=== PATIENT | male | born 1940 | race Caucasian/White ===

== ENCOUNTER → 2023-07-08 10:53 | Outpatient (REF) | payer MEDICARE, SELFPAY ==
[2023-07-08 12:03] LABS: ALT (SGPT) 28 U/L (0-50); AST (SGOT) 30 U/L (17-59); Albumin 4.1 g/dl (3.5-5.0); Alkaline Phosphatase 104 U/L (38-126); Blood Urea Nitrogen 33 mg/dl (9-20); Carbon Dioxide 27 mmol/L (22-30); Chloride 108 mmol/L (98-107); Glucose 100 mg/dl (70-99); HDL Cholesterol 47 mg/dl; LDL Cholesterol, Calculated 45 mg/dl; Potassium 4.3 mmol/L (3.5-5.1); Sodium 140 mmol/L (135-145); Total Bilirubin 1.3 mg/dl (0.2-1.3); Total Cholesterol 112 mg/dl (50-199); Total Protein 6.8 g/dl (6.3-8.2); Triglyceride 102 mg/dl (10-149); Very Low Density Lipoprotein 20 mg/dl (0-30); eGFR 49.87
== END ==
LOC: REG 10:53
PROVIDERS: ATTENDING PHYSICIAN Family Medicine
DX: N18.31 Chronic kidney disease, stage 3a (principal); R73.01 Impaired fasting glucose; E78.2 Mixed hyperlipidemia
CPT/HCPCS: 36415; 80053; 80061

== ENCOUNTER → 2023-08-12 13:49 | Outpatient (REF) | payer MEDICARE, SELFPAY | LOC: RAD 13:49 | PROVIDERS: ATTENDING PHYSICIAN Physician Assistant; FAMILY PHYSICIAN Family Medicine | DX: S29.9XXA Unspecified injury of thorax, initial encounter (principal); R07.81 Pleurodynia | CPT/HCPCS: 71101 ==

== ENCOUNTER 2023-10-23 10:49 | Emergency (ER) | payer MEDICARE, SELFPAY ==
[2023-10-23 10:55] VITALS: BP 141/72
--- NOTE | 2023-10-23 11:34 | ED.MUSCINJ ---
HPI-Injury
General
Chief Complaint: Musculo-Skeletal Complaint
Source: patient
Exam Limitations: none
Time Seen by Provider: 10/23/23 11:17
Nursing documentation reviewed up to this point in time: agreed with
Travel History
Have you had any contact with someone who has COVID-19?: No
Do you have any symptoms of coronavirus? Fever > 100 degrees, chills, cough, shortness of breath, sore throat, loss of taste or smell, muscle aches, or headache?: No
History of Present Illness-Injury
Initial Injury comments:
83-year-old male with history of A-fib on Eliquis, HTN, CAD, CABG 11/05, cardiac stents, from home states he has pain at the base of his right middle finger since yesterday. After pushing down hard on a mailbox post trying to get it to fit into a
cemented metal hole.
Past History
Past History
ED Past Medical History: CAD, HTN and Hypercholesterolemia
ED Past Surgical History: Cardiac (CABG 2004 at [place], [place])
Social History
Tobacco: Non-smoker
Personal:
Living: with family
Review of Systems
Review of Systems
Allergies reviewed?: Yes
All Other Systems: ROS reviewed and negative except as documented in HPI and ROS
Musculoskeletal: Reports other (pain over MCP joint right third finger)
Neurological: Denies weakness or numbness
Phy Exam
Physical Exam
Physical Exam:
PHYSICAL EXAMINATION:
General: no apparent distress, not acutely ill
Neuro: alert and oriented.
Psychiatric: well kept. interactive and cooperative
Musculoskeletal: Point tender to palpate over dorsal aspect of third MCP joint. Full range of motion of fingers and wrist. No significant swelling, no redness. Distal neurovascular intact. Moves with ease
Skin: Warm, pink.
Injury Course
Orders/Labs/Results
Orders:
Orders
10/23/23 10:57
Hand, Right 3 View [CR Hand - Right Min 3 Views] Urgent
Comment:
Reason For Exam: pain
MDM/Problems Addressed
Differential Diagnosis Includes:
Contusion, fracture
MDM/Problems Addressed:
83-year-old male with history of A-fib on Eliquis, HTN, CAD, CABG 11/05, cardiac stents, from home states he has pain at the base of his right middle finger since yesterday. After pushing down hard on a mailbox post trying to get it to fit into a
cemented metal hole.
X-ray right hand is negative
Point tender over dorsal MCP joint 3rd finger rest of hand is nontender
[place] wrist splint applied and pt states good support of affected joint. N/V intact
Referred to ortho if needed
*Critical Care Note
Total Time (30-74mins, 75-104mins- exclusive of procedures): Not Applicable
ED Attending Note
-
Portions of this chart may have been created with voice recognition software.� Occasional wrong word or��sound alike� substitutions may have occurred due to the inherent limitations of voice recognition software.
Discharge Plan
Departure
Patient Disposition: Home (Routine Discharge)
Date of Disposition: 10/23/23
Time of Disposition: 11:45
Patient with high blood pressure during this ER visit?: No
Condition: Good
Discharge Problem:
Pain in joint of right hand
Instructions: Contusion (DC), Using Cold for Pain
Prescriptions:
No Action
atorvastatin 20 MG tablet
20 mg PO QPM
aspirin 325 MG tablet
325 mg PO DAILY
amlodipine 10 MG tablet
10 mg PO DAILY
zolpidem 10 MG tablet
10 mg PO HS
Patient Comments:
06/10/20-patient lasted picked up on 03/24/20 #90
multivitamin with folic acid [Tab-A-Julee] 1 TABLET tablet
1 tab PO DAILY
isosorbide mononitrate 30 MG tablet extended release 24 hr
30 mg PO DAILY
candesartan 16 MG tablet
32 mg PO DAILY
nitroglycerin 0.4 MG tablet, sublingual
0.4 mg sublingual [id number] PRN (Reason: chest pain)
Referrals:
Gilson Lord MD [Active] - As needed
Wang Mercado MD [Family Provider] -
Activity Restrictions/Additional Instructions:
As we discussed, wear the splint for up to one week as needed for comfort/support
Tylenol as needed for pain
You most likely aggravated the joint pushing on the mailbox post.
We will treat for a deep bruise or 'contusion.'
Make appointment and see the orthopedic doctor if not much improved within the next week.
Interventions
Interventions:
*Risk Screen - Suicide Last Done: 10/23/23 10:55
*General Assessment Last Done: 10/23/23 10:55
*Neglect/Abuse Screening Last Done: 10/23/23 10:55
*ED COVID-19 Vaccine History Last Done: 10/23/23 10:55
*Nursing Disposition Last Done: 10/23/23 11:58
ED-Musculoskeletal Assessment Last Done: 10/23/23 11:34
Discharge Date and Time
Discharge Date/Time: 10/23/23 11:59
Print Language: FRENCH
== END 2023-10-23 11:59 | disposition home or self-care (01) ==
LOC: EMR 10:49
PROVIDERS: EMERGENCY PHYSICIAN Emergency Medicine; FAMILY PHYSICIAN Family Medicine
DX: M25.541 Pain in joints of right hand (principal); X50.1XXA Overexertion from prolonged static or awkward postures, initial encounter; I48.91 Unspecified atrial fibrillation; I10 Essential (primary) hypertension; I25.10 Atherosclerotic heart disease of native coronary artery without angina pectoris
CPT/HCPCS: 99283; 29125; 73130

== ENCOUNTER → 2023-11-13 11:34 | Outpatient (REF) | payer MEDICARE, SELFPAY ==
[2023-11-13 13:05] LABS: % Basophils 0.7 % (0-2); % Eosinophils 1.7 % (0-6); % Immature Granulocytes 0.4 % (0-0.5); % Lymphocytes 28.1 % (20.5-51.1); % Monocytes 11.3 % (1.7-9.3); % Neutrophils 57.8 % (42.2-75.2); Absolute Basophils 0.1 10^3/uL (0-0.2); Absolute Eosinophils 0.1 10^3/uL (0-0.7); Absolute Monocytes 0.8 10^3/uL (0.1-0.6); Absolute Neutrophils 4.2 10^3/uL (1.4-6.5); Hematocrit 39.2 % (39.0-52.0); Hemoglobin 13.8 g/dL (13.0-18.0); Mean Corp Hgb Conc. 35.2 g/dL (33.0-37.0); Mean Corpuscular Hgb 33.4 pg (27.0-31.0); Mean Corpuscular Volume 94.9 fL (80.0-94.0); Mean Platelet Volume 11.2 fL (7.4-10.4); Nucleated Red Blood Cells % 0 % (-); Platelet Count 170 10^3/uL (130-400); Red Blood Cell Count 4.13 10^6/uL (4.70-6.10); Red Cell Dist. Width 12.6 % (11.5-14.5); White Blood Cell Count 7.2 10^3/uL (4.8-10.8)
[2023-11-13 13:33] LABS: ALT (SGPT) 27 U/L (0-50); AST (SGOT) 33 U/L (17-59); Albumin 4.1 g/dl (3.5-5.0); Alkaline Phosphatase 119 U/L (38-126); Blood Urea Nitrogen 32 mg/dl (9-20); Calcium 9.4 mg/dl (8.4-10.2); Carbon Dioxide 24 mmol/L (22-30); Chloride 107 mmol/L (98-107); Glucose 118 mg/dl (70-99); Potassium 4.1 mmol/L (3.5-5.1); Sodium 141 mmol/L (135-145); Total Bilirubin 1.1 mg/dl (0.2-1.3); Total Protein 6.9 g/dl (6.3-8.2); eGFR 49.87
[2023-11-13 13:35] LABS: Urine Albumin 1+ (Neg - Trace); Urine Bilirubin Negative (Negative); Urine Character Clear (Clear); Urine Color Yellow; Urine Glucose Negative (Negative); Urine Ketone Negative (Negative); Urine Leukocyte Negative (Negative); Urine Nitrite Negative (Negative); Urine Occult Blood Negative (Negative); Urine Urobilinogen Negative (Neg - 1+)
[2023-11-13 13:55] LABS: NT-proBNP 1460 pg/ml
[2023-11-13 15:18] LABS: Urine Granular Cast 0-2 /LPF (0); Urine Red Blood Cell 0-2 /HPF (0-2); Urine Urothelial Cell 0-2 /LPF (FEW); Urine White Cell 0-2 /HPF (0-5)
== END ==
LOC: RAD 11:34
PROVIDERS: ATTENDING PHYSICIAN Physician Assistant; FAMILY PHYSICIAN Family Medicine
DX: R60.0 Localized edema (principal)
CPT/HCPCS: 36415; 71046; 80053; 81003; 81015; 83880; 85025

== ENCOUNTER → 2023-11-20 10:57 | Outpatient (REF) | payer MEDICARE, SELFPAY ==
[2023-11-20 12:46] LABS: ALT (SGPT) 29 U/L (0-50); AST (SGOT) 32 U/L (17-59); Albumin 4.4 g/dl (3.5-5.0); Alkaline Phosphatase 114 U/L (38-126); Blood Urea Nitrogen 27 mg/dl (9-20); Calcium 9.7 mg/dl (8.4-10.2); Carbon Dioxide 28 mmol/L (22-30); Chloride 105 mmol/L (98-107); Glucose 102 mg/dl (70-99); HDL Cholesterol 43 mg/dl; LDL Cholesterol, Calculated 37 mg/dl; Potassium 4.8 mmol/L (3.5-5.1); Sodium 143 mmol/L (135-145); Total Bilirubin 1.2 mg/dl (0.2-1.3); Total Cholesterol 95 mg/dl (50-199); Total Protein 7.3 g/dl (6.3-8.2); Triglyceride 77 mg/dl (10-149); Very Low Density Lipoprotein 15 mg/dl (0-30); eGFR 49.87
[2023-11-20 13:58] LABS: Glycohemoglobin (HgbA1c) 5.6 % (4.0-5.6)
== END ==
LOC: REG 10:57
PROVIDERS: ATTENDING PHYSICIAN Family Medicine
DX: R73.01 Impaired fasting glucose (principal); N18.31 Chronic kidney disease, stage 3a; E78.2 Mixed hyperlipidemia
CPT/HCPCS: 36415; 80053; 80061; 83036

== ENCOUNTER → 2023-12-23 07:40 | Outpatient (REF) | payer MEDICARE, SELFPAY ==
[2023-12-23 14:11] LABS: Blood Urea Nitrogen 35 mg/dl (9-20); Calcium 9.5 mg/dl (8.4-10.2); Carbon Dioxide 30 mmol/L (22-30); Chloride 103 mmol/L (98-107); Glucose 92 mg/dl (70-99); Potassium 4.6 mmol/L (3.5-5.1); Sodium 141 mmol/L (135-145); eGFR 39.51
== END ==
LOC: REG 07:40
PROVIDERS: ATTENDING PHYSICIAN Internal Medicine Cardiovascular Disease; FAMILY PHYSICIAN Internal Medicine Cardiovascular Disease
DX: I10 Essential (primary) hypertension (principal)
CPT/HCPCS: 36415; 80048

== ENCOUNTER 2024-02-07 05:54 | Day surgery (SDC) | payer MEDICARE, SELFPAY ==
[2024-01-24 11:01] VITALS: BMI 31.5
[2024-01-24 11:37] LABS: % Basophils 0.9 % (0-2); % Eosinophils 1.9 % (0-6); % Immature Granulocytes 0.8 % (0-0.5); % Lymphocytes 27.7 % (20.5-51.1); % Monocytes 12.2 % (1.7-9.3); % Neutrophils 56.5 % (42.2-75.2); Absolute Basophils 0.1 10^3/uL (0-0.2); Absolute Eosinophils 0.1 10^3/uL (0-0.7); Absolute Immature Granulocytes 0.1 10^3/uL (0-0.05); Absolute Lymphocytes 1.8 10^3/uL (1.2-3.4); Absolute Monocytes 0.8 10^3/uL (0.1-0.6); Absolute Neutrophils 3.7 10^3/uL (1.4-6.5); Hematocrit 41.8 % (39.0-52.0); Hemoglobin 14.6 g/dL (13.0-18.0); Mean Corp Hgb Conc. 34.9 g/dL (33.0-37.0); Mean Corpuscular Volume 97.2 fL (80.0-94.0); Mean Platelet Volume 10.9 fL (7.4-10.4); Nucleated Red Blood Cells % 0 % (-); Platelet Count 165 10^3/uL (130-400); Red Cell Dist. Width 12.8 % (11.5-14.5); White Blood Cell Count 6.5 10^3/uL (4.8-10.8)
[2024-01-24 11:48] LABS: ALT (SGPT) 26 U/L (0-50); AST (SGOT) 32 U/L (17-59); Albumin 4.5 g/dl (3.5-5.0); Alkaline Phosphatase 91 U/L (38-126); Blood Urea Nitrogen 30 mg/dl (9-20); Calcium 9.7 mg/dl (8.4-10.2); Carbon Dioxide 29 mmol/L (22-30); Chloride 105 mmol/L (98-107); Estimated Creatinine Clearance 36 ml/min; Glucose 101 mg/dl (70-99); Magnesium 2.3 mg/dl (1.6-2.3); Potassium 4.6 mmol/L (3.5-5.1); Sodium 144 mmol/L (135-145); Total Bilirubin 1.5 mg/dl (0.2-1.3); Total Protein 7.1 g/dl (6.3-8.2); eGFR 42.49
[2024-01-24 11:50] LABS: INR 1.42; PT 17.1 Sec (11.4-14.6)
[2024-02-07] VITALS (17 sets, daily range): BP systolic 131–164; BP diastolic 63–105; BMI 31.5
[2024-02-07 06:48] LABS: Glucose - Point of Care 101 mg/dl (70-99)
[2024-02-07 08:34] LABS: ACT-LR - POC 351 Seconds (116-155)
[2024-02-07 09:00] LABS: ACT-LR - POC 308 Seconds (116-155)
[2024-02-07 09:23] LABS: ACT-LR - POC 266 Seconds (116-155)
[2024-02-07 09:41] LABS: ACT-LR - POC 153 Seconds (116-155)
--- NOTE | 2024-02-07 10:00 | ITS.CL.ABL ---
[employer] - Ablation
Ablation
Procedure Report:
Primary Workflow Developer: Gagan Yee MD
Procedure Date: 02/07/2024
Procedure
Electrophysiology Study, with RA, CS pacing and recording
Radiofrequency Ablation of Counterclockwise Cavotricuspid Isthmus-dependent Right Atrial Flutter
Three-dimensional Electroanatomic Mapping and Navigation
Patient History
See H&P for complete details
Patient is a pleasant 83-year-old male with a past medical history significant for CAD status post PCI and CABG, hypertension, sleep apnea, hypercholesterolemia, NSVT, persistent (longstanding) typical rate controlled atrial flutter anticoagulated
with Eliquis. Patient did undergo procedure for symptomatic longstanding persistent atrial flutter.
Method
After informed consent was obtained, the patient was brought to the EP lab in a post-absorptive, non-sedated state. A peripheral IV was in place. Continuous electrocardiography, blood pressure and pulse oximetry monitoring were initiated and
cardioversion / defibrillator patch electrodes were positioned on the chest in an anterior-posterior orientation. Sedation was administered via the anesthesia services. A time-out was called. Local anesthesia was administered at the right and left
femoral vein access sites. Vascular access was achieved using modified Seldinger technique, and 3 sheaths were placed.
The patient entered the room in atrial flutter with a tachycardia cycle length of 260-270 ms. A multipolar catheter were advanced to the coronary sinus. A mapping / ablation catheter was used to record and pace. Intracardiac ultrasound (ICE) was
utilized for structural assessment and monitoring. Tachycardia was characterized by concentric activation pattern in the CS catheters. Entrainment maneuvers established cavotricuspid isthmus-dependence. PPI minus TCL less than 30 from proximal
CS and PPI minus TCL noted to be 0 or equal to the tachycardia cycle length from CTI.
Three-dimensional electroanatomic mapping was utilized. Catheter ablation in the right atrium was performed as described below. The patient�s atrial flutter terminated during ablation. Ablation continued until a line was complete from the
tricuspid valve annulus to the IVC-RA junction. Clockwise and counterclockwise trans-isthmus times were determined, and RA activation patterns confirmed bidirectional block. Following completion of ablation, patient was noted to be in junctional
rhythm with return to sinus rhythm which remained until completion of the case. Interval measurements in NSR were made. A waiting period was observed, after which the procedure was concluded.
At the end of the procedure, all catheters and sheaths were removed, hemostasis was assured with Vascade and manual pressure. Protamine was given. The patient was taken to the recovery area in stable condition.
Baseline Intervals:
Rhythm: Atrial flutter
QRS: 125 ms
QT: 489 ms
Post-Procedure Intervals:
NJ: 200 ms
QRS: 122 ms
QT: 441 ms
QTc: 419 ms
AVWB: 640 ms
AVNERP: 700/570 ms
No arrhythmia was inducible post ablation
Arrhythmia Summary:
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
� Present at study outset
� Stable Atrial CL = 270 ms
� Surface flutter wave morphology: Negative in the inferior leads and positive in V1
� Right to left activation in CS
� Cycle length contained with in the RA on electroanatomic mapping
� Pacing from the isthmus resulted in entrainment (with concealment) with PPI=TCL.
These finding established the diagnosis of isthmus-dependent, counterclockwise atrial flutter.
Mapping and Ablation
Utilizing electroanatomic three-dimensional navigation, a 3.5 mm tip Tacticath SE irrigated ablation catheter was advanced to the right atrium with the assistance of an 11.5 Fr Agilis steerable long sheath. An electroanatomic three-dimensional map
of the right atrium was constructed, with careful attention to anatomic landmarks, including the coronary sinus, IVC-RA and SVC-RA junction, tricuspid valve annulus, and region of the His bundle electrogram.
An ablation line was created from the tricuspid annulus to the IVC in the 6:00 position (ALISSA clock). Power was titrated between 30 and 40 Fields with careful monitoring of impedance and temperature.. The patient�s atrial flutter terminated during
ablation, with resumption of NSR. The line was completed during CS pacing, and bidirectional block was achieved. The ablation line was mapped to ensure widely spaced double potentials, and after a 20 minute waiting period, bidirectional block
persisted.
Ablation Summary
Total ablation time: 6 minutes 41 seconds
Estimated Blood Loss
<5 mL
Fluoroscopy Time 3.2
Radiation Dose 14.3 mGy
DAP 1.5
Complications
None
Conclusions
1. Typical, counterclockwise atrial flutter. Isthmus-dependence was established with entrainment.
2. Successful ablation of the cavotricuspid isthmus with bidirectional block.
Recommendations
- Anticipate discharge home today
- Bedrest with straight leg precautions for four hours
- Resume anticoagulation tonight if patient/groins stable
- Continue remaining home medications as indicated
- Follow-up in clinic as scheduled
Omar Del Real,
Clinical Cardiac Electrophysiology
cc: Gagan Yee MD; Wang Mercado MD
== END 2024-02-07 13:10 | disposition home or self-care (01) ==
LOC: CATH 05:54
PROVIDERS: ATTENDING PHYSICIAN Internal Medicine Cardiovascular Disease; FAMILY PHYSICIAN Family Medicine; OTHER PHYSICIAN Internal Medicine Cardiovascular Disease
DX: I48.3 Typical atrial flutter (principal); I25.10 Atherosclerotic heart disease of native coronary artery without angina pectoris; Z95.1 Presence of aortocoronary bypass graft; Z95.5 Presence of coronary angioplasty implant and graft; I13.0 Hypertensive heart and chronic kidney disease with heart failure and stage 1 through stage 4 chronic kidney disease, or unspecified chronic kidney disease; E11.22 Type 2 diabetes mellitus with diabetic chronic kidney disease; N18.30 Chronic kidney disease, stage 3 unspecified; I50.32 Chronic diastolic (congestive) heart failure; I49.3 Ventricular premature depolarization; I47.20 Ventricular tachycardia, unspecified; K76.0 Fatty (change of) liver, not elsewhere classified; G47.00 Insomnia, unspecified; R73.03 Prediabetes; Z68.31 Body mass index [BMI] 31.0-31.9, adult; E66.9 Obesity, unspecified; Z79.899 Other long term (current) drug therapy; Z79.84 Long term (current) use of oral hypoglycemic drugs; Z79.01 Long term (current) use of anticoagulants; E78.00 Pure hypercholesterolemia, unspecified; G47.33 Obstructive sleep apnea (adult) (pediatric)
CPT/HCPCS: C1732; C1894; C1730; C1769; C1766; C2630; C1892; 36415; 75572; 80053; 82962; 83735; 85025; 85347; 85610; 86850; 86900; 86901; 93005; 93653; C1760; Q9967

== ENCOUNTER → 2024-03-12 12:37 | Outpatient (REF) | payer MEDICARE, SELFPAY ==
[2024-03-12 13:31] LABS: ALT (SGPT) 31 U/L (0-50); AST (SGOT) 34 U/L (17-59); Albumin 4.2 g/dl (3.5-5.0); Alkaline Phosphatase 101 U/L (38-126); Blood Urea Nitrogen 33 mg/dl (9-20); Calcium 9.2 mg/dl (8.4-10.2); Carbon Dioxide 27 mmol/L (22-30); Chloride 104 mmol/L (98-107); Glucose 106 mg/dl (70-99); Potassium 4.6 mmol/L (3.5-5.1); Sodium 144 mmol/L (135-145); Total Bilirubin 1.1 mg/dl (0.2-1.3); eGFR 39.51
== END ==
LOC: REG 12:37
PROVIDERS: ATTENDING PHYSICIAN Family Medicine
DX: N18.31 Chronic kidney disease, stage 3a (principal); R73.01 Impaired fasting glucose
CPT/HCPCS: 36415; 80053

== ENCOUNTER → 2024-07-06 11:46 | Outpatient (REF) | payer MEDICARE, SELFPAY ==
[2024-07-06 13:10] LABS: ALT (SGPT) 25 U/L (0-50); AST (SGOT) 28 U/L (17-59); Albumin 4.8 g/dl (3.5-5.0); Alkaline Phosphatase 90 U/L (38-126); Blood Urea Nitrogen 31 mg/dl (9-20); Calcium 9.8 mg/dl (8.4-10.2); Carbon Dioxide 31 mmol/L (22-30); Chloride 101 mmol/L (98-107); Glucose 96 mg/dl (70-99); HDL Cholesterol 51 mg/dl; LDL Cholesterol, Calculated 58 mg/dl; Potassium 4.8 mmol/L (3.5-5.1); Sodium 140 mmol/L (135-145); Total Bilirubin 1.5 mg/dl (0.2-1.3); Total Cholesterol 133 mg/dl (50-199); Total Protein 7.6 g/dl (6.3-8.2); Triglyceride 120 mg/dl (10-149); Very Low Density Lipoprotein 24 mg/dl (0-30); eGFR 34.35
[2024-07-06 13:15] LABS: Glycohemoglobin (HgbA1c) 5.5 % (4.0-5.6)
== END ==
LOC: REG 11:46
PROVIDERS: ATTENDING PHYSICIAN Family Medicine
DX: E78.2 Mixed hyperlipidemia (principal); R73.01 Impaired fasting glucose; N18.31 Chronic kidney disease, stage 3a
CPT/HCPCS: 36415; 80053; 80061; 83036

== ENCOUNTER → 2024-08-06 13:36 | Outpatient (REF) | payer MEDICARE, SELFPAY | LOC: DHSLP 13:36 | PROVIDERS: ATTENDING PHYSICIAN Internal Medicine Critical Care Medicine | DX: G47.33 Obstructive sleep apnea (adult) (pediatric) (principal) | CPT/HCPCS: 95800 ==

== ENCOUNTER → 2024-08-10 11:48 | Outpatient (REF) | payer MEDICARE, SELFPAY ==
[2024-08-10 12:26] LABS: % Basophils 0.7 % (0-2); % Eosinophils 1.4 % (0-6); % Immature Granulocytes 0.3 % (0-0.5); % Lymphocytes 24.6 % (20.5-51.1); % Monocytes 13.1 % (1.7-9.3); % Neutrophils 59.9 % (42.2-75.2); Absolute Basophils 0.1 10^3/uL (0-0.2); Absolute Eosinophils 0.1 10^3/uL (0-0.7); Absolute Lymphocytes 1.8 10^3/uL (1.2-3.4); Absolute Monocytes 0.9 10^3/uL (0.1-0.6); Absolute Neutrophils 4.3 10^3/uL (1.4-6.5); Hematocrit 46.3 % (39.0-52.0); Hemoglobin 15.6 g/dL (13.0-18.0); Mean Corp Hgb Conc. 33.7 g/dL (33.0-37.0); Mean Corpuscular Hgb 32.6 pg (27.0-31.0); Mean Corpuscular Volume 96.7 fL (80.0-94.0); Mean Platelet Volume 10.6 fL (7.4-10.4); Nucleated Red Blood Cells % 0 % (-); Platelet Count 162 10^3/uL (130-400); Red Blood Cell Count 4.79 10^6/uL (4.70-6.10); Red Cell Dist. Width 12.6 % (11.5-14.5); Reticulocyte Count 1.4 % (0.4-2.8); White Blood Cell Count 7.2 10^3/uL (4.8-10.8)
[2024-08-10 12:39] LABS: Blood Urea Nitrogen 36 mg/dl (9-20); Calcium 9.9 mg/dl (8.4-10.2); Carbon Dioxide 30 mmol/L (22-30); Chloride 106 mmol/L (98-107); Glucose 109 mg/dl (70-99); Potassium 4.5 mmol/L (3.5-5.1); Sodium 142 mmol/L (135-145); eGFR 45.62
[2024-08-10 13:07] LABS: Protein/creatinine Ratio 0.7; Urine Protein 48 mg/dl
== END ==
LOC: REG 11:48
PROVIDERS: ATTENDING PHYSICIAN Internal Medicine Nephrology; FAMILY PHYSICIAN Family Medicine
DX: N18.31 Chronic kidney disease, stage 3a (principal); I10 Essential (primary) hypertension
CPT/HCPCS: 36415; 80048; 82570; 84156; 85025; 85045

== ENCOUNTER → 2024-09-07 14:04 | Outpatient (REF) | payer MEDICARE, SELFPAY | LOC: DHSLP 14:04 | PROVIDERS: ATTENDING PHYSICIAN Internal Medicine Critical Care Medicine; FAMILY PHYSICIAN Family Medicine | DX: G47.33 Obstructive sleep apnea (adult) (pediatric) (principal) | CPT/HCPCS: 95810 ==

== ENCOUNTER → 2024-09-23 13:08 | Outpatient (REF) | payer MEDICARE, SELFPAY | LOC: RAD 13:08 | PROVIDERS: ATTENDING PHYSICIAN Internal Medicine Cardiovascular Disease; FAMILY PHYSICIAN Family Medicine; OTHER PHYSICIAN Internal Medicine Nephrology | DX: N18.31 Chronic kidney disease, stage 3a (principal); I47.29 Other ventricular tachycardia | CPT/HCPCS: 76770 ==

== ENCOUNTER → 2024-09-24 09:11 | Outpatient (REF) | payer MEDICARE, SELFPAY | LOC: RCS 09:11 | PROVIDERS: ATTENDING PHYSICIAN Internal Medicine Cardiovascular Disease; FAMILY PHYSICIAN Family Medicine | DX: I47.29 Other ventricular tachycardia (principal) | CPT/HCPCS: 93306 ==

== ENCOUNTER 2024-10-27 07:27 | Inpatient (IN) | payer MEDICARE, SELFPAY ==
[2024-10-24] VITALS (13 sets, daily range): BP systolic 145–190; BP diastolic 65–98; PULSE 54–57; BMI 29.0; BMI 28.4
[2024-10-24 01:32] LABS: % Basophils 0.8 % (0-2); % Immature Granulocytes 0.6 % (0-0.5); % Monocytes 10.9 % (1.7-9.3); % Neutrophils 61.7 % (42.2-75.2); Absolute Basophils 0.1 10^3/uL (0-0.2); Absolute Eosinophils 0.2 10^3/uL (0-0.7); Absolute Immature Granulocytes 0.1 10^3/uL (0-0.05); Absolute Lymphocytes 1.9 10^3/uL (1.2-3.4); Absolute Monocytes 0.9 10^3/uL (0.1-0.6); Absolute Neutrophils 4.9 10^3/uL (1.4-6.5); Hematocrit 44.4 % (39.0-52.0); Hemoglobin 15.4 g/dL (13.0-18.0); Mean Corp Hgb Conc. 34.7 g/dL (33.0-37.0); Mean Corpuscular Volume 95.3 fL (80.0-94.0); Nucleated Red Blood Cells % 0 % (-); Platelet Count 149 10^3/uL (130-400); Red Blood Cell Count 4.66 10^6/uL (4.70-6.10); Red Cell Dist. Width 12.8 % (11.5-14.5); White Blood Cell Count 7.9 10^3/uL (4.8-10.8)
--- NOTE | 2024-10-24 01:32 | ED.GENMED ---
History of Present Illness
General
Chief Complaint: Dizziness
Source: patient
Exam Limitations: none
Time Seen by Provider: 10/24/24 00:47
History of Present Illness
History of Present Illness:
84-year-old male presents with the onset of dizziness today. He states he was walking up the stairs and developed the dizziness. Dizziness was hard to describe. Initially felt like lightheaded sensation however when he lay down in the ambulance
he felt a spinning. There was no associated nausea diaphoresis chest pain headache double vision blurry vision or neck pain. He is anticoagulated with Eliquis. He has history of couple bypass with stent placement as well as cardiac ablation.
Currently he states he has no symptoms at the time of my exam.
Past History
Past History
ED Past Medical History: CAD, HTN and Hypercholesterolemia
ED Past Surgical History: Cardiac (CABG 2004 at [place], [place])
Social History
Tobacco: Non-smoker
Personal:
Living: with family
Phy Exam
Physical Exam
Physical Exam:
General: Well-appearing male no acute respiratory distress
HEENT: Normocephalic atraumatic pupils equal round reactive to light no nystagmus
Heart: Regular rate and rhythm
Lungs: Clear no wheeze
Extremities: No cyanosis or edema
Skin is warm no rash
Neurologic exam: Alert and oriented no facial asymmetry finger-nose intact [id number] intact. David-Hallpike negative
Course
Orders/Labs/Results
Orders:
Orders
10/24/24 01:00
Electrocardiogram (*1) Urgent
Reason for Study: Vertigo / Dizzy
EKG- Treatment ONCE
10/24/24 01:22
Complete Blood Count/With Diff Urgent
Comprehensive Metabolic Panel Urgent
Troponin I Urgent
10/24/24 02:13
Aspirin 325 mg PO NOW STA
Abnormal Lab Results
10/24/24
01:22
RBC 4.66 L 10^6/uL
(4.70-6.10)
MCV 95.3 H fL
(80.0-94.0)
MCH 33.0 H pg
(27.0-31.0)
MPV 11.0 H fL
(7.4-10.4)
Abs Immat Gran (auto) 0.1 H 10^3/uL
(0-0.05)
Absolute Monos (auto) 0.9 H 10^3/uL
(0.1-0.6)
Immature Gran % 0.6 H %
(0-0.5)
Monocytes % 10.9 H %
(1.7-9.3)
Chloride 111 H mmol/L
(98-107)
BUN 34 H mg/dl
(9-20)
Creatinine 1.4 H mg/dL
(0.7-1.3)
Glucose 133 H mg/dl
(70-99)
Alkaline Phosphatase 138 H U/L
(38-126)
Troponin I 0.042 H* ng/ml
10/24/24 01:22
10/24/24 01:22
Vital Signs
Initial and Last Documented VS:
Initial Vital Signs
Temp Pulse Resp BP Pulse Ox
98.0 F 53 18 186/73 97
10/24/24 00:14 10/24/24 00:14 10/24/24 00:14 10/24/24 00:14 10/24/24 00:14
Last Documented Vital Signs
Temp Pulse Resp BP Pulse Ox
98.0 F 55 15 166/70 97
10/24/24 00:14 10/24/24 02:00 10/24/24 02:00 10/24/24 02:00 10/24/24 00:14
MDM/Problems Addressed
Differential Diagnosis Includes:
Dizziness, now resolved. Question orthostasis versus vertigo versus arrhythmia or electrolyte abnormality
EKG shows sinus bradycardia with first-degree block no ischemic changes.
Neurologic exam intact. Symptoms resolved. Will check labs
*Critical Care Note
Total Time (30-74mins, 75-104mins- exclusive of procedures): Not Applicable
Update Note
Update Note:
Workup demonstrates slightly elevated troponin at 0.045. Trend of his troponins in the past have been in the normal range but lower. Patient reexamined still no chest pain feels okay. Given significant cardiac history and elevated troponin will
decide to keep patient in hospital. EKG shows sinus bradycardia with frequent PVCs. Aspirin ordered.
ED Attending Note
-
Portions of this chart may have been created with voice recognition software.� Occasional wrong word or��sound alike� substitutions may have occurred due to the inherent limitations of voice recognition software.
Discharge Plan
Departure
Patient Disposition: Admit
Date of Disposition: 10/24/24
Time of Disposition: 02:21
Presentation/result/management discussed w/ accepting MD/DO: Hospitalist
Discharge Problem:
Elevated troponin
Prescriptions:
No Action
atorvastatin 20 MG tablet
20 mg PO QPM
amlodipine 10 MG tablet
10 mg PO DAILY
zolpidem 10 MG tablet
10 mg PO HS
isosorbide mononitrate 30 MG tablet extended release 24 hr
30 mg PO HS
furosemide 40 mg Tablet
20 mg PO DAILY
candesartan 32 mg Tablet
16 mg PO DAILY
Eliquis 5 mg Tablet
5 mg PO BID
Jardiance 10 mg Tablet
10 mg PO DAILY
acetaminophen [Tylenol Extra Strength] 500 mg Tablet
1,000 mg PO DAILY
Referrals:
Wang Mercado MD [Family Provider] -
Interventions
Interventions:
*Risk Screen - Suicide Last Done: 10/24/24 00:14
*General Assessment Last Done: 10/24/24 01:33
*Neglect/Abuse Screening Last Done: 10/24/24 01:33
*ED- Fall Risk Assessment Last Done: 10/24/24 01:33
ED- Neurological Assessment Last Done: 10/24/24 01:43
ED- Cardiac Assessment Last Done: 10/24/24 01:43
Discharge Date and Time
Print Language: MALTESE
--- NOTE | 2024-10-24 01:44 | EDRN ---
Pt says he was dizzy earlier tonight, had to use the wall for support when he went up the stairs. This prompted 911 call to bring pt to ED. Pt says the dizziness is gone now. Pt had it while he was in the ambulance. Pt denies cp, sob, abd pain,
n/v/d/c, urinary symptoms, fever/chills/cough, headache.
[2024-10-24 01:50] LABS: ALT (SGPT) 31 U/L (0-50); AST (SGOT) 29 U/L (17-59); Albumin 4.6 g/dl (3.5-5.0); Alkaline Phosphatase 138 U/L (38-126); Blood Urea Nitrogen 34 mg/dl (9-20); Calcium 9.5 mg/dl (8.4-10.2); Carbon Dioxide 23 mmol/L (22-30); Chloride 111 mmol/L (98-107); Estimated Creatinine Clearance 37 ml/min; Glucose 133 mg/dl (70-99); Potassium 3.9 mmol/L (3.5-5.1); Sodium 144 mmol/L (135-145); Total Bilirubin 1.1 mg/dl (0.2-1.3); Total Protein 7.5 g/dl (6.3-8.2); eGFR 49.56
[2024-10-24 01:57] LABS: Troponin I 0.042 ng/ml
[2024-10-24] MEDS: ASPIRIN 325 MG PO (02:36)
--- NOTE | 2024-10-24 03:47 | HPS.HSE ---
Family Physician
-
Family Physician: Wang Mercado
Chief Complaint
-
Dizziness
History of Present Illness
This is a 84-year-old male with past medical history significant for CAD status post CABG, status post stenting, atrial fibrillation on anticoagulation, status post ablation, hypertension presenting to the emergency department with episode of
dizziness. Patient reported being in usual state of health up until episode just prior to coming to the emergency department. He said that he got up and started walking towards the stairs and he suddenly felt very dizzy. He did not have a
spinning sensation at the time but reports some lightheadedness. He did not feel like passing out. He denied having any chest pain at the time. He denied feeling short of breath and he denied any palpitations. He walked up the flight of stairs
and did not feel well so he decided to call EMS. Reported that while EMS was en route to the hospital he had spinning sensation in the transport vehicle. Since then he has not had any vertigo-like symptoms. He was able to get up to urinate
without feeling dizzy or lightheaded. He has not had any chest pain.
Patient denies any recent exertional chest pain, exertional dyspnea. Reports that he did have mild nasal and sinus congestion in the morning prior to onset of his symptoms but he has not had them since. He denies any cough fevers or chills.
Denies any recent melena or hematochezia. He denies any diarrhea. Denies any recent changes in his medications.
He reported that he has a red spot in his left antecubital area surrounding a central dot. Is noticed this for about 2 days. He denies any pruritus.
Patient denies any prior history of syncope. He does state that he has chronic bradycardia. He is not on any blockade. He states his heart rate can go as low as 30s without feeling symptomatic.
In the emergency department he was afebrile, blood pressure was high as 180 systolic. Pulse as low as 38 on the telemetry. He is satting 98% on room air.
ECG shows sinus bradycardia rate of 57 with 4 degree AV block and occasional PVCs. Troponin was 0.042. CBC was unremarkable. Electrolytes were normal. BUN/creatinine were stable compared to prior 30.1.4.
Medical History
Past Medical History
Past Medical History: Reports Other
Additional Past Medical History:
CAD status post CABG, status post stent to RIDER to diagonal
Status post cardiac cath 06/11/2023
CKD
HAYLEY
Hypertension,
Hyperlipidemia
Past Surgical History: Reports Cardiac (CABG x 5)
Social History
Tobacco: Non-smoker
Alcohol: None
Family History
Family History: Not pertinent
Allergies / Home Medications
Allergies reflects when Allergies were last updated in [facility] [employer].
Home Medications with original date entered in [facility]
Allergy/Medication List:
Allergies
Allergy/AdvReac Type Severity Reaction Status Date / Time
No Known Allergies Allergy Verified 10/24/24 00:20
Home Medications
amlodipine 10 mg tablet 10 mg PO DAILY Heart disease/condition 05/07/10
atorvastatin 20 mg tablet 20 mg PO QPM High cholesterol 05/07/10
zolpidem 10 mg tablet 10 mg PO HS Sleep 05/07/10
isosorbide mononitrate 30 mg tablet,extended release 24 hr 30 mg PO HS Heart disease/condition 06/10/20
apixaban 5 mg tablet (Eliquis) 5 mg PO BID 01/21/24
candesartan 32 mg tablet 16 mg PO DAILY 01/21/24
empagliflozin 10 mg tablet (Jardiance) 10 mg PO DAILY 01/21/24
furosemide 40 mg tablet 20 mg PO DAILY 01/21/24
acetaminophen 500 mg tablet (Tylenol Extra Strength) 1,000 mg PO DAILY 10/24/24
Review of Systems
-
History Source: Patient
Constitutional: Reports No Symptoms
EENT: Reports No Symptoms
Respiratory: Reports No Symptoms
Cardiac: Reports No Symptoms
Abdomen/GI: Reports No Symptoms
: Reports No Symptoms
Musculoskeletal: Reports No Symptoms
Skin: Reports No Symptoms
Neurological: Reports Dizzy
Endocrine: Reports No Symptoms
Hematologic/Lymphatic: Reports No Symptoms
Psych: Reports No Symptoms
Physical Exam
Vital Signs
Vital Signs
Temp Pulse Resp BP Pulse Ox
98.0 F 55 15 166/70 97
10/24/24 00:14 10/24/24 02:00 10/24/24 02:00 10/24/24 02:00 10/24/24 00:14
Physical Exam
General: Well Developed, Well Nourished and No Apparent Distress
HEENT: NormoCephalic, Moist mucous membranes and Atraumatic
Respiratory: Clear
Cardiac: S1/S2 and Regular Rhythm
GI: Soft, Non Tender, Non Distended and Normal Bowel Sounds
Rectal: Deferred by Provider
Genito-urinary: Deferred by me
Musculoskeletal: No Clubbing, No Cyanosis and No Edema
Skin: Rash (Central red rash in the antecubital fossa with surrounding erythematous patch)
Neuro: Nonfocal/grossly intact
Psych: Calm
Laboratory Results
-
10/24/24 01:22
10/24/24 01:22
Laboratory Results
Total Bilirubin 1.1 mg/dl (0.2-1.3) 10/24/24 01:22
AST 29 U/L (17-59) 10/24/24 01:22
ALT 31 U/L (0-50) 10/24/24 01:22
Alkaline Phosphatase 138 U/L (38-126) H 10/24/24 01:22
Troponin I 0.042 ng/ml H* 10/24/24 01:22
Data Reviewed
-
Medical Tests (Nuc Med, Echo, EKG etc): Image Personally Visualized and interpreted
Lab Data: Labs Reviewed by me
Old Records: Reviewed
Impression/Plan
-
IMPRESSION:
84-year-old with history of CAD status post CABG, atrial fibrillation/slow flutter status post ablation, hypertension presents to the emergency department with episode of dizziness. He he reported feeling lightheaded and then later on having
vertigo episode which is now resolved. Found to be bradycardic in the ED it was low 37 which patient says is not unusual. ECG shows known for degree AV block however the MO prolongation is now more profound to as high as 360. Occasional PVCs
noted. Troponin was 0.045. He is not having any chest pain at this time. He is otherwise hypertensive but euvolemic appearing and in no acute distress.
PLAN:
1. Dizziness -ischemic versus arrhythmic etiology suspected.
- admit to telemetry observation
- suspect possible worsening 1st deg AVB, no blockers present
- rule out ischemia with repeat troponins
- check tsh and lyme titers
- check orthostatics for compensatorial mechanisms
- cardiology consultation
AFIB
- for afib, s/p ablation and sinus michaela now, continue eliquis unless trop rising. No chest pain. Given aspirin in ED
CAD/HTN
- trend troponin
- asa 325 given
- ntg prn chest pain
- continue his home candesartan, imdur and amlodipine
- furosemide 20 daily
- jardiance 10 daily
HAYLEY
- on nasal cpap at home. Prefers to be off CPAP here.
DVT PPX - on apixaban
Code status - Full Code
--- NOTE | 2024-10-24 04:49 | EDRN ---
"Pt says his HR goes into the 30's sometimes and that this has been happening since covid started in 2019. Pt checked his pulse when he felt dizzy and said it was in the 50's. Dr Bates ordered a sl ntg. Pt has NO chest pain. Confirmed with Dr Jana (~) that ntg sl is being given because pt concerned about his bp."
[2024-10-24] MEDS: NITROSTAT (SUBLINGUAL) 0.4 MG SL (04:51)
[2024-10-24 05:02] LABS: Troponin I 0.038 ng/ml
--- NOTE | 2024-10-24 06:03 | PTCARENOTE ---
Patient arrived from ED via stretcher. Patient AAOx3, able to make needs known. IV flushed and patent. Patient stnd by assist from stretcher to bed.
--- NOTE | 2024-10-24 07:59 | W.PN.HOSP.TC ---
Today's Communication/Plan
-
see bold
Assessment / Plan
Assessment / Plan
HPI: 84-year-old male with past medical history significant for CAD status post CABG, status post stenting, atrial fibrillation on anticoagulation, status post ablation, hypertension presenting to the emergency department with episode of dizziness.
Patient reported being in usual state of health up until episode just prior to coming to the emergency department. He said that he got up and started walking towards the stairs and he suddenly felt very dizzy. He did not have a spinning sensation
at the time but reports some lightheadedness. He did not feel like passing out. He denied having any chest pain at the time. He denied feeling short of breath and he denied any palpitations. He walked up the flight of stairs and did not feel
well so he decided to call EMS. Reported that while EMS was en route to the hospital he had spinning sensation in the transport vehicle. Since then he has not had any vertigo-like symptoms. He was able to get up to urinate without feeling dizzy
or lightheaded.
Sinus bradycardia
First-degree AV block
Dizziness
- Sees Dr. JOE Yee in the office
- Appreciate cardiology input, no clear indication for pacemaker at this point
- Check orthostatic vital signs, avoid AV tracy blocking agents, monitor on telemetry
Paroxysmal atrial flutter
- Status post flutter ablation February 2024
- Patient is bradycardic, continue Eliquis
Coronary artery disease
- Patient with minimally elevated troponin, EKG nonischemic
- Continue Imdur, Eliquis, statin
Obstructive sleep apnea
- On nasal CPAP at home, prefers to be off CPAP here
DVT prophylaxis�Eliquis
Full code
Physical Exam
General: No acute distress
HEENT: Normocephalic, Atraumatic, EOMI, MMM
Respiratory: Clear to Auscultation bilaterally
Cardiac: Normal S1/S2, bradycardic rate and Rhythm
GI: Soft, Nontender, Nondistended, Normal Bowel Sounds
Extremities: No Clubbing, Cyanosis
Bilateral lower extremity edema noted
Neuro: Nonfocal/Grossly Intact
Anticipated Discharge: 24 - 48 hours
Subjective/Interval History
-
Date of Service: October 24, 2024
Patient witnessed ambulating from the bathroom. He denies dizziness. No chest pain, no shortness of breath. Last episode of dizziness was in the emergency room.
Objective Data
-
Labs:
Laboratory Results
10/24/24 10/24/24
01:22 06:39
WBC 7.9 Pending
Hgb 15.4 Pending
Hct 44.4 Pending
Plt Count 149 Pending
Sodium 144 Pending
Potassium 3.9 Pending
Chloride 111 H Pending
Carbon Dioxide 23 Pending
BUN 34 H Pending
Creatinine 1.4 H Pending
Glucose 133 H Pending
Calcium 9.5 Pending
Total Bilirubin 1.1
AST 29
ALT 31
Alkaline Phosphatase 138 H
Vital Signs:
Vital Signs
Temp Pulse Resp BP Pulse Ox
98.3 F 48 18 168/73 98
10/24/24 06:04 10/24/24 06:04 10/24/24 06:04 10/24/24 06:04 10/24/24 06:04
I&O
10/23/24 10/24/24 10/25/24
06:59 06:59 06:59
Output Total 275 / 275
Balance -275 / -275
[2024-10-24 08:32] LABS: Hematocrit 44.9 % (39.0-52.0); Hemoglobin 15.8 g/dL (13.0-18.0); Mean Corp Hgb Conc. 35.2 g/dL (33.0-37.0); Mean Corpuscular Hgb 33.2 pg (27.0-31.0); Mean Corpuscular Volume 94.3 fL (80.0-94.0); Mean Platelet Volume 11.7 fL (7.4-10.4); Platelet Count 155 10^3/uL (130-400); Red Blood Cell Count 4.76 10^6/uL (4.70-6.10); Red Cell Dist. Width 12.7 % (11.5-14.5); White Blood Cell Count 7.9 10^3/uL (4.8-10.8)
[2024-10-24 08:42] LABS: Blood Urea Nitrogen 29 mg/dl (9-20); Calcium 9.4 mg/dl (8.4-10.2); Carbon Dioxide 24 mmol/L (22-30); Chloride 111 mmol/L (98-107); Estimated Creatinine Clearance 40 ml/min; Glucose 89 mg/dl (70-99); HDL Cholesterol 45 mg/dl; LDL Cholesterol, Calculated 48 mg/dl; Potassium 3.9 mmol/L (3.5-5.1); Sodium 144 mmol/L (135-145); Total Cholesterol 107 mg/dl (50-199); Triglyceride 71 mg/dl (10-149); Very Low Density Lipoprotein 14 mg/dl (0-30); eGFR 54.17
[2024-10-24] MEDS: ATACAND 16 MG PO (09:14)
[2024-10-24] MEDS: ELIQUIS 5 MG PO ×2 (09:15→19:14)
[2024-10-24] MEDS: LASIX PO ×2 (09:15→09:17)
[2024-10-24] MEDS: FARXIGA 10 MG PO (09:15)
[2024-10-24] MEDS: NORVASC 10 MG PO (09:15)
[2024-10-24] MEDS: TYLENOL 1000 MG PO (09:15)
--- NOTE | 2024-10-24 10:21 | CON.CAR ---
Addendum entered and electronically signed by Neeraj Aguilar DO 10/24/24 13:11:
I saw and examined the patient.
The Harness Mender's note was reviewed and I agree with the note.
Comment:
Plan:
Patient has a history of CABG and PCI, PAF status post ablation February 2024, right bundle branch block, LAFB, NSVT bradycardia sleep apnea chronic kidney disease hypertension and hyperlipidemia. He presents with an episode of 2 hours of
dizziness lightheadedness that occurred while he was walking. He denies syncope. He felt poorly and EMS was called. He did record feeling dizzy in the ambulance. EKG showed sinus bradycardia with first-degree AV block occasional PVCs. He had
minimal troponin elevation at 0.042. He was admitted for observation. He was hypertensive on arrival.
He was seen by Dr. Yee July 2024. He had a recent 5-day [employer] monitor completed 09/19/2024 which showed bradycardia with right bundle branch block and first-degree AVB. Heart rate range 28 to 118 bpm with average 58 bpm. No second-degree AV
block is seen. No atrial fibrillation or flutter. Episodes of junctional rhythm and junctional escape with numerous pauses up to 4.2 seconds seen predominantly during sleep. 1 episode of slow junctional tachycardia. Frequent PVCs with 6 episodes
of NSVT up to 5 beats in length. Rare brief AIVR. Rare PACs.
He has noted to have heart rates into the 20s with sinus bradycardia and junctional escape beats this morning while awake. He does complain of some dizziness with this. We discussed consideration for permanent pacemaker given symptomatic
bradycardia and the need for AV tracy blocking agents including beta-jessica given his extensive CAD history. He will be monitored with consideration for permanent pacemaker TuOctober 27, prior to discharge.
Continue medical therapy of non-PR troponin. Recent echo reviewed showed preserved LV function.
LDL is in the goal range. Continue Lipitor.
Could consider outpt ischemic eval for nonMI trop and NSVT. Cont medical therapy
Discussed with nursing.
Original Note:
Consultation
Consultation Request
Date/Time Consultation Requested: 10/24/2024
Date/Time Consultation Performed: 10/24/2024
Requesting Provider: Dr. Bates
Performing Provider: Karissa Harkins PA-C for Dr. Aguilar
Reason for Consultation: bradycardia, dizziness, Abnormal troponin
Medical History
-
History of Present Illness:
Patient is an 84-year-old male with past medical history significant for coronary artery disease status post CABG x 5 and RIDER to LAD stenting in 2004, paroxysmal atrial flutter status post ablation February 2024, right bundle branch block/LAFB,
NSVT, bradycardia, CKD, obstructive sleep apnea, hypertension, hyperlipidemia who presented to emergency department on 10/24/2024 with an episode of dizziness/lightheadedness which occurred while patient was walking. Symptoms were brief in nature.
He denied having associated chest pain or shortness of breath. EMS was called and patient reported feeling spinning sensation in ambulance. Workup in emergency department demonstrated ECG showing sinus bradycardia rate of 57 with 1st degree AV
block and occasional PVCs. Troponin was 0.042 then trended down. CBC was unremarkable. Electrolytes were normal with mild elevation of creatinine at 1.4 which is near baseline. Patient was noted to be hypertensive on arrival with blood pressure
of 186/73. Patient was provided aspirin in emergency department.
Of note he noticed a red spot in his left antecubital area that has a puncture erika in the middle with ecchymosis surrounding it. It appears to be some kind of bite. Developed within last 72 hours. He does not recall seeing a tick or anything
bite him
PMH:
CAD
status post CABG x 5
Status post JOCELINE RIDER to LAD (2004)
Bradycardia
Right bundle branch block/LAFB
Paroxysmal atrial flutter
Status post flutter ablation February 2024
NSVT
CKD, stage III
HAYLEY, intolerant to CPAP
Hypertension,
Hyperlipidemia
Past Medical History
Past Medical History: Other (See HPI)
Past Surgical History: Cardiac (CABG x 5, JOCELINE to RIDER to LAD 2004, atrial flutter ablation 02/21/2024)
Social History
Tobacco: Non-Smoker
Alcohol: None
Drug: None
Family History
Family History: CAD
Allergies / Home Medications
Allergy/AdvReac Type Severity Reaction Status Date / Time
No Known Allergies Allergy Verified 10/24/24 00:20
�Medication �Instructions �Recorded �Confirmed �Type
amlodipine 10 mg tablet 10 mg PO DAILY Heart 05/07/10 10/24/24 History
disease/condition
atorvastatin 20 mg tablet 20 mg PO QPM High cholesterol 05/07/10 10/24/24 History
zolpidem 10 mg tablet 10 mg PO HS Sleep 05/07/10 10/24/24 History
isosorbide mononitrate 30 mg 30 mg PO HS Heart disease/condition 06/10/20 10/24/24 History
tablet,extended release 24 hr
apixaban 5 mg tablet (Eliquis) 5 mg PO BID 01/21/24 10/24/24 History
candesartan 32 mg tablet 16 mg PO DAILY 01/21/24 10/24/24 History
empagliflozin 10 mg tablet 10 mg PO DAILY 01/21/24 10/24/24 History
(Jardiance)
furosemide 40 mg tablet 20 mg PO DAILY 01/21/24 10/24/24 History
acetaminophen 500 mg tablet 1,000 mg PO DAILY 10/24/24 10/24/24 History
(Tylenol Extra Strength)
Review of Systems
-
History Source: Patient
All other systems: Negative unless noted
Physical Exam
Vital Signs
Temp Pulse Resp BP Pulse Ox
97.9 F 46 22 170/69 97
10/24/24 08:03 10/24/24 08:03 10/24/24 08:03 10/24/24 09:14 10/24/24 08:03
GEN: No distress, awake, Ox3, lying in bed
HEENT: supple, anicteric, mmm
LUNGS: CTA, no wheezes/rales
CV: Reg, bradycardic with occasional ectopy, S1/S2, 1/6 harsh right sternal border murmur, no rub or gallop
ABD: soft, BS+, NT/ND
EXT: No edema, clubbing or sinus
NEURO: Gross non-focal
SKIN: Left arm with Red area in antecubital with puncture erika in middle, otherwise no rash, warm, dry, pink
Lab Results
10/24/24 06:39
10/24/24 06:39
Troponin I 0.038 ng/ml H* 10/24/24 04:27
Impression / Plan
-
Family Physician: Wang Mercado
Picker Feeder: Gagan Yee
Impression:
Presents 09/24/2024 with episode of dizziness
Hypertension
bradycardia
Abnormal troponin, peaked at 0.042
CAD
status post CABG x 5
Status post JOCELINE RIDER to LAD (2004)
Bradycardia
Right bundle branch block/LAFB
Paroxysmal atrial flutter
Status post flutter ablation February 2024
NSVT
CKD, stage III
HAYLEY, currently not utilizing CPAP
Hypertension,
Hyperlipidemia
5-day [employer] monitor completed 09/19/2024: Sinus bradycardia with right bundle branch block and first-degree AVB. Heart rate range 28 to 118 bpm with average 58 bpm. No second-degree AV block is seen. No atrial fibrillation or flutter. Episodes of
junctional rhythm and junctional escape with numerous pauses up to 4.2 seconds seen predominantly during sleep. 1 episode of slow junctional tachycardia. Frequent PVCs with 6 episodes of NSVT up to 5 beats in length. Rare brief AIVR. Rare PACs.
Echo 09/24/2024: EF 64%. No regional wall motion abnormalities. Stage II DD. Mild to moderate aortic stenosis with peak/mean gradient 32/16 mmHg and ASHLEY 1.3 cm�. Mild AI. Mild TR. PAP 50 mmHg, ascending aorta dilation, 4.2 cm.
Exercise nuclear stress test 01/24/2023: 7:16, 8 METS, 86% predicted max heart rate. Predominantly fixed defect in basal inferior, mid inferior, apex and apical inferior segments consistent with infarction with residual ischemia. Predominantly
fixed defects in the basal anterior, basal anterolateral, mid anterior, mid anterolateral and apical lateral segments consistent with infarction with residual ischemia. EF 49%. No change compared to study in 2020. DTS +7
Plan:
- Presented with episode of dizziness/lightheadedness that lasted almost 2 hour associated with bradycardia and pauses.
- EKG demonstrated sinus bradycardia with first-degree AV block, right bundle branch block and PVCs.
-Per review of telemetry heart rates 30 to 50 bpm with frequent pauses and PVCs/NSVT 3-5 beats in duration. Concerned that patient is having symptomatic bradycardia that would warrant pacemaker. Bradycardia is noted both while patient is sleeping
and while he is awake.
- Would avoid AV tracy blocking agents
- TSH 3.2
-Orthostatic blood pressure pending
- Echocardiogram performed 1 month ago as outpatient. No need to repeat
- Given patient has developed symptomatic bradycardia would recommend patient undergoing pacemaker implant. This was discussed with the patient and he is agreeable
- Continue to monitor on telemetry
- Patient has known history of bradycardia and wore an outpatient monitor 1 month ago which showed heart rate range 28 to 118 bpm with average of 58 bpm. There was no advanced heart block or atrial fibrillation noted. Junctional rhythm and escape
beats with pauses lasting up to 4.2 seconds occurred during sleep which raise concern for obstructive sleep apnea.
- Patient did have sleep study and has mild HAYLEY. He has upcoming pulmonary visit to discuss in greater detail
- Abnormal troponin, suspect nonischemic myocardial injury, peaked at 0.042 and trended down thereafter. EKG shows sinus bradycardia without ischemia. Patient denies chest pain. Also episodes of NSVT. Would consider outpatient ischemic
evaluation once patient has recovered from pacemaker implant, last performed in 2022
- Patient noted to be hypertensive throughout admission. However patient reports blood pressure at home generally is well-controlled
-Continue amlodipine, candesartan, Lasix and isosorbide
- Continue to monitor and trend blood pressure. Can consider adding low-dose beta-jessica after pacemaker implant if patient remains hypertensive
- Known CKD and follows with nephrology, continue Jardiance
HPI 10/24/2024:
Patient is an 84-year-old male with past medical history significant for coronary artery disease status post CABG x 5 and RIDER to LAD stenting in 2004, paroxysmal atrial flutter status post ablation February 2024, right bundle branch block/LAFB,
NSVT, bradycardia, CKD, obstructive sleep apnea, hypertension, hyperlipidemia who presented to emergency department on 10/24/2024 with an episode of dizziness/lightheadedness which occurred while patient was walking. Symptoms were brief in nature.
He denied having associated chest pain or shortness of breath. EMS was called and patient reported feeling spinning sensation in ambulance. Workup in emergency department demonstrated ECG showing sinus bradycardia rate of 57 with 1st degree AV
block and occasional PVCs. Troponin was 0.042 then trended down. CBC was unremarkable. Electrolytes were normal with mild elevation of creatinine at 1.4 which is near baseline. Patient was provided aspirin in emergency department.
Of note he noticed a red spot in his left antecubital area that has a puncture erika in the middle with ecchymosis surrounding it. It appears to be some kind of bite. Developed within last 72 hours. He does not recall seeing a tick or anything
bite him
Data Reviewed
-
EKG: Report Reviewed by me, Discussed with Physician, Discussed with Nurse and Discussed with Patient
Labs: Labs Reviewed by me, Discussed with Physician, Discussed with Nurse and Discussed with Patient
Old Records: Reviewed
--- NOTE | 2024-10-24 14:06 | CM ---
ETHEL met [facility] to complete IA. He resides with his spouse in a two story home with no steps to enter. The patient denies DME/VN/SNF in the past. The patient anticipates being discharged to home with no additional needs being identified at
this time.
LEMUS notice provided and signed; placed in chart.
Plan: Discharge to home when medically stable.
No identified needs at discharge.
[2024-10-24 15:00] LABS: Glycohemoglobin (HgbA1c) 5.5 % (4.0-5.6)
[2024-10-24] MEDS: LIPITOR 20 MG PO (17:24)
[2024-10-24] MEDS: IMDUR (EXTENDED RELEASE) PO (21:11)
[2024-10-24] MEDS: AMBIEN 10 MG PO (21:34)
[2024-10-24] MEDS: IMDUR (EXTENDED RELEASE) 30 MG PO (23:48)
[2024-10-25] VITALS (12 sets, daily range): BP systolic 110–166; BP diastolic 58–96; PULSE 34–60; BMI 28.1
[2024-10-25] MEDS: LASIX 20 MG PO (08:00)
[2024-10-25] MEDS: NORVASC 10 MG PO (08:00)
[2024-10-25] MEDS: ELIQUIS 5 MG PO ×2 (08:00→19:21)
[2024-10-25] MEDS: TYLENOL 1000 MG PO (08:00)
[2024-10-25] MEDS: ATACAND 16 MG PO (08:00)
[2024-10-25] MEDS: FARXIGA 10 MG PO (08:00)
--- NOTE | 2024-10-25 08:50 | W.PN.HOSP.TC ---
Today's Communication/Plan
-
Transfer to IVU as per cardiology
Cardiology plans for permanent pacemaker placement on 10/27/2024
Assessment / Plan
Assessment / Plan
HPI: 84-year-old male with past medical history significant for CAD status post CABG, status post stenting, atrial fibrillation on anticoagulation, status post ablation, hypertension presenting to the emergency department with episode of dizziness.
Patient reported being in usual state of health up until episode just prior to coming to the emergency department. He said that he got up and started walking towards the stairs and he suddenly felt very dizzy. He did not have a spinning sensation
at the time but reports some lightheadedness. He did not feel like passing out. He denied having any chest pain at the time. He denied feeling short of breath and he denied any palpitations. He walked up the flight of stairs and did not feel
well so he decided to call EMS. Reported that while EMS was en route to the hospital he had spinning sensation in the transport vehicle. Since then he has not had any vertigo-like symptoms. He was able to get up to urinate without feeling dizzy
or lightheaded.
Sinus bradycardia
First-degree AV block
Dizziness
- Sees Dr. JOE Yee in the office
- Appreciate cardiology input, plan for permanent pacemaker placement on 10/27/2024
Paroxysmal atrial flutter
- Status post flutter ablation February 2024
- Patient is bradycardic, continue Eliquis
Coronary artery disease
- Patient with minimally elevated troponin, EKG nonischemic
- Continue Imdur, Eliquis, statin
Obstructive sleep apnea
- On nasal CPAP at home, continue CPAP HS here
DVT prophylaxis�Eliquis
Full code
Total time spent to see the patient on the floor, examine the patient, review data and lab results, discuss treatment plan with patient, nursing staff around 38 minutes.
Physical Exam
General: No acute distress
HEENT: Normocephalic, Atraumatic, EOMI, MMM
Respiratory: Clear to Auscultation bilaterally
Cardiac: Normal S1/S2, bradycardic rate and Rhythm
GI: Soft, Nontender, Nondistended, Normal Bowel Sounds
Extremities: No Clubbing, Cyanosis
Bilateral lower extremity edema noted
Neuro: Nonfocal/Grossly Intact
Anticipated Discharge: > 48 hours
Subjective/Interval History
-
Date of Service: October 25, 2024
No recurrence of dizziness. Patient continues to have bradycardia, especially nocturnally. No chest pain, no shortness of breath. No fever, no vomiting.
Objective Data
-
Vital Signs:
Vital Signs
Temp Pulse Resp BP Pulse Ox
97.1 F 33 20 143/82 95
10/25/24 08:04 10/25/24 08:04 10/25/24 08:04 10/25/24 08:04 10/25/24 08:04
I&O
10/24/24 10/25/24 10/26/24
06:59 06:59 06:59
Intake Total 1320 / 1320
Output Total 275 / 275
Balance -275 / -275 1320 / 1320
--- NOTE | 2024-10-25 11:46 | W.PN.CARDCBS ---
Today's Communication / Plan
-
PPM October 27
Impression / Plan
-
.
Family Physician: Wang Mercado
Counter Checker: Gagan Yee
Impression:
Presents 09/24/2024 with episode of dizziness
Symptomatic bradycardia with junctional escape beats
Right bundle branch block/LAFB
Hypertension
Abnormal troponin, peaked at 0.042
CAD
status post CABG x 5
Status post JOCELINE RIDER to LAD (2004)
Paroxysmal atrial flutter
Status post flutter ablation February 2024
NSVT
CKD, stage III
HAYLEY on CPAP
Hypertension,
Hyperlipidemia
5-day [employer] monitor completed 09/19/2024: Sinus bradycardia with right bundle branch block and first-degree AVB. Heart rate range 28 to 118 bpm with average 58 bpm. No second-degree AV block is seen. No atrial fibrillation or flutter. Episodes of
junctional rhythm and junctional escape with numerous pauses up to 4.2 seconds seen predominantly during sleep. 1 episode of slow junctional tachycardia. Frequent PVCs with 6 episodes of NSVT up to 5 beats in length. Rare brief AIVR. Rare PACs.
Echo 09/24/2024: EF 64%. No regional wall motion abnormalities. Stage II DD. Mild to moderate aortic stenosis with peak/mean gradient 32/16 mmHg and ASHLEY 1.3 cm�. Mild AI. Mild TR. PAP 50 mmHg, ascending aorta dilation, 4.2 cm.
Exercise nuclear stress test 01/24/2023: 7:16, 8 METS, 86% predicted max heart rate. Predominantly fixed defect in basal inferior, mid inferior, apex and apical inferior segments consistent with infarction with residual ischemia. Predominantly
fixed defects in the basal anterior, basal anterolateral, mid anterior, mid anterolateral and apical lateral segments consistent with infarction with residual ischemia. EF 49%. No change compared to study in 2020. DTS +7
Plan:
HPI: Patient has a history of CABG and PCI, PAF status post ablation February 2024, right bundle branch block, LAFB, NSVT bradycardia sleep apnea chronic kidney disease hypertension and hyperlipidemia. He presents with an episode of 2 hours of
dizziness lightheadedness that occurred while he was walking. He denies syncope. He felt poorly and EMS was called. He did record feeling dizzy in the ambulance. EKG showed sinus bradycardia with first-degree AV block occasional PVCs. He had
minimal troponin elevation at 0.042. He was admitted for observation. He was hypertensive on arrival.
He was seen by Dr. Yee July 2024. He had a recent 5-day [employer] monitor completed 09/19/2024 which showed bradycardia with right bundle branch block and first-degree AVB. Heart rate range 28 to 118 bpm with average 58 bpm. No second-degree AV
block is seen. No atrial fibrillation or flutter. Episodes of junctional rhythm and junctional escape with numerous pauses up to 4.2 seconds seen predominantly during sleep. 1 episode of slow junctional tachycardia. Frequent PVCs with 6 episodes
of NSVT up to 5 beats in length. Rare brief AIVR. Rare PACs.
Continues to have heart rates that drop into the 20s with sinus bradycardia and junctional escape beats while awake. He has complained of some dizziness with this.
He is agreeable to consideration for permanent pacemaker given symptomatic bradycardia and the need for AV tracy blocking agents including beta-jessica given his extensive CAD history. He will be monitored with likely placement of permanent
pacemaker Tues October 27, prior to discharge.
Transfer to IVU in anticipation of PPM. Hold Farxiga
Mild orthostasis. Cont current regimen for now.
Continue medical therapy of non-ID troponin. Recent echo reviewed showed preserved LV function.
Could consider outpt ischemic eval for nonMI trop and NSVT. Cont medical therapy
LDL is in the goal range. Continue Lipitor.
CPAP for HAYLEY
Known CKD and follows with nephrology
Discussed with nursing and primary service.
HPI 10/24/2024:
Patient is an 84-year-old male with past medical history significant for coronary artery disease status post CABG x 5 and RIDER to LAD stenting in 2004, paroxysmal atrial flutter status post ablation February 2024, right bundle branch block/LAFB,
NSVT, bradycardia, CKD, obstructive sleep apnea, hypertension, hyperlipidemia who presented to emergency department on 10/24/2024 with an episode of dizziness/lightheadedness which occurred while patient was walking. Symptoms were brief in nature.
He denied having associated chest pain or shortness of breath. EMS was called and patient reported feeling spinning sensation in ambulance. Workup in emergency department demonstrated ECG showing sinus bradycardia rate of 57 with 1st degree AV
block and occasional PVCs. Troponin was 0.042 then trended down. CBC was unremarkable. Electrolytes were normal with mild elevation of creatinine at 1.4 which is near baseline. Patient was provided aspirin in emergency department.
Of note he noticed a red spot in his left antecubital area that has a puncture erika in the middle with ecchymosis surrounding it. It appears to be some kind of bite. Developed within last 72 hours. He does not recall seeing a tick or anything
bite him
Progress Note - Counter Checker
Subjective
Date of Service: October 25, 2024
Pt seen and examined. No complaints. No chest pain or shortness of breath.
Objective
Labs:
10/24/24 06:39
10/24/24 06:39
Labs
Hgb 15.8 g/dL (13.0-18.0) 10/24/24 06:39
Hct 44.9 % (39.0-52.0) 10/24/24 06:39
Plt Count 155 10^3/uL (130-400) 10/24/24 06:39
Sodium 144 mmol/L (135-145) 10/24/24 06:39
Potassium 3.9 mmol/L (3.5-5.1) 10/24/24 06:39
BUN 29 mg/dl (9-20) H 10/24/24 06:39
Creatinine 1.3 mg/dL (0.7-1.3) 10/24/24 06:39
Glucose 89 mg/dl (70-99) 10/24/24 06:39
Troponins
10/24/24 10/24/24
01:22 04:27
Troponin I 0.042 H* 0.038 H*
Vital Signs and I&O:
Vital Signs
Temp Pulse Resp BP Pulse Ox
97.8 F 36 21 116/58 96
10/25/24 11:35 10/25/24 11:35 10/25/24 11:35 10/25/24 11:35 10/25/24 11:35
Vital Signs
Temp Pulse Resp BP Pulse Ox
97.8 F 36 21 116/58 96
10/25/24 11:35 10/25/24 11:35 10/25/24 11:35 10/25/24 11:35 10/25/24 11:35
Intake & Output
10/23/24 10/24/24 10/25/24 10/26/24
06:59 06:59 06:59 06:59
Intake Total 1320 / 1320
Output Total 275 / 275
Balance -275 / -275 1320 / 1320
Physical Exam
Physical Exam
General: No acute distress, AAOX3
Neck: Negative JVD
Heart: Regular, Negative S3 positive S1/S2, Negative S4, No murmur
Lungs: CTA b/l, negative wheezes/rales/rhonchi
Abd: Positive BS, NT/ND, neg rebound/rigidity/guarding
Ext: Negative cyanosis/clubbing/edema
Neuro: nonfocal
--- NOTE | 2024-10-25 12:25 | PTCARENOTE ---
Patient OOB to bathroom with a steady gait. Patient has no c/o dizziness, SOB or chest pain. Patient consistently with HR 30s. Call mendoza in reach, patient verbalized understanding to call nurse for c/o dizziness.
--- NOTE | 2024-10-25 15:10 | PTCARENOTE ---
Report given to Kilo in IVU. Patient transported by RN to IVU with CPAP.
[2024-10-25] MEDS: LIPITOR 20 MG PO (17:59)
--- NOTE | 2024-10-25 19:00 | PTCARENOTE ---
~1500: Handoff report received from 3W RN. Pt AOx4, SB on tele 30s-70s wtih 1st degree, BBB and PVCs, +murmur present. Patient does not c/o dizziness or pain at this time. SBP 160s on admission to IVU. satting 100% on RA. Patient independent in
room, but instructed to call if feel dizzy. Patient oriented to room and call mendoza system. All needs met at this time, call mendoza within reach.
~9907-5267: Patient resting in room at this time. Does not c/o pain or dissiness. SB 1st degree AVB BBB 30s-50s at rest or NSR 1st degree AVB BBB 60s-70s with movement with frequent PVCs, VSS at this time on RA. Handoff report given to nightshift
RN.
[2024-10-25] MEDS: AMBIEN 10 MG PO (22:00)
[2024-10-25] MEDS: IMDUR (EXTENDED RELEASE) 30 MG PO (22:01)
--- NOTE | 2024-10-25 23:45 | PTCARENOTE ---
Patient received at change of shift resting in the bed. Denies pain at this time. Denies feeling dizzy at this time but does endorse feeling lightheaded at times. Patient appears to be drowsy and lethargic but is easily arousable to voice and
tactile stimulation. Discussed with patient to please utilize call mendoza for assistance when ambulating if feeling dizzy or lightheaded, patient agreeable to call when getting out of bed. Sinus michaela on telemetry with first degree AV block, prolonged
QT interval, pauses, and paired PVCs. Junctional rhythm also noted at times. Heart rate fluctuates from twenties to sixties. Oxygen saturation 95-97% on room air, patient placed on CPAP by respiratory therapy at bedtime. Plan of care discussed with
patient and son. Call mendoza within reach. Bed in lowest position, wheels locked. Care ongoing.
[2024-10-26] VITALS (16 sets, daily range): BP systolic 120–183; BP diastolic 55–86; PULSE 36–59; BMI 28.1
--- NOTE | 2024-10-26 06:32 | PTCARENOTE ---
Patient's orthostatic vital signs completed as ordered. Positive orthostatics, patient denies feeling lightheaded or dizzy at this time.
--- NOTE | 2024-10-26 08:05 | W.PN.HOSP.TC ---
Today's Communication/Plan
-
see A/P
Assessment / Plan
Assessment / Plan
HPI: 84-year-old male with past medical history significant for CAD status post CABG, status post stenting, atrial fibrillation on anticoagulation, status post ablation, hypertension; p/w dizziness. He did not have spinning sensation but reported
some lightheadedness. He denied having any chest pain
A/P:
# Dizziness due to symptomatic sinus bradycardia
# First-degree AV block
Sees Dr. JOE Yee in the office
Appreciate cardiology input, plan for permanent pacemaker placement on 10/27/2024
# Paroxysmal atrial flutter
Status post flutter ablation February 2024
continue Eliquis
# Coronary artery disease
Patient with minimally elevated troponin, EKG nonischemic
Continue Imdur, Eliquis, statin
# Obstructive sleep apnea
On nasal CPAP at home, continue CPAP HS here
DVT prophylaxis�Eliquis
Full code
Anticipated Discharge: 24 - 48 hours
Subjective/Interval History
-
Date of Service: October 26, 2024
Objective Data
-
Vital Signs:
Vital Signs
Temp Pulse Resp BP Pulse Ox
36.4 C 51 20 120/80 97
10/26/24 07:38 10/26/24 06:30 10/26/24 07:38 10/26/24 06:30 10/26/24 07:38
I&O
10/25/24 10/26/24 10/27/24
06:59 06:59 06:59
Intake Total 1320 / 1320
Balance 1320 / 1320
Review of Systems
-
Neuro: Reports Dizzy
Physical Exam
-
General: Well Developed, Well Nourished, No Apparent Distress, Comfortable and Conversant; Negative Respiratory Distress
HEENT: Normocephalic, Atraumatic, Nose Appears Normal and Ears Appear Normal; Negative Oxygen
Respiratory: Clear to Auscultation and Non Labored Respirations; Negative Accessory Resp Muscle Use
Cardiac: Regular Rhythm and S1/S2
GI: Soft, Nontender, Nondistended and Normal Bowel Sounds
Skin: Warm and Dry
Neuro: Awake, Alert, Oriented and AO x 3
Psych: Calm and Intact Judgement/Insight
Data Reviewed
-
Labs: Labs Reviewed by me
[2024-10-26] MEDS: ELIQUIS 5 MG PO (08:14)
[2024-10-26] MEDS: TYLENOL 1000 MG PO (08:14)
[2024-10-26] MEDS: LASIX 20 MG PO (08:14)
[2024-10-26] MEDS: NORVASC 10 MG PO (08:14)
[2024-10-26] MEDS: ATACAND 16 MG PO (08:15)
[2024-10-26 11:15] LABS: Lyme Antibody Screen, EIA Equivocal (Negative)
--- NOTE | 2024-10-26 12:11 | W.PN.CARDCBS ---
Today's Communication / Plan
-
Monitor on telemetry overnight
Tentative plan for permanent pacemaker tomorrow
Impression / Plan
-
Family Physician: Wang Mercado
Corporate Communications Manager: Gagan Yee
Impression:
Presents 09/24/2024 with episode of dizziness
Symptomatic bradycardia with junctional escape beats
Right bundle branch block/LAFB
Hypertension
Abnormal troponin, peaked at 0.042
CAD
status post CABG x 5
Status post JOCELINE RIDER to LAD (2004)
Paroxysmal atrial flutter
Status post flutter ablation February 2024
NSVT
CKD, stage III
HAYLEY on CPAP
Hypertension,
Hyperlipidemia
5-day [employer] monitor completed 09/19/2024: Sinus bradycardia with right bundle branch block and first-degree AVB. Heart rate range 28 to 118 bpm with average 58 bpm. No second-degree AV block is seen. No atrial fibrillation or flutter. Episodes of
junctional rhythm and junctional escape with numerous pauses up to 4.2 seconds seen predominantly during sleep. 1 episode of slow junctional tachycardia. Frequent PVCs with 6 episodes of NSVT up to 5 beats in length. Rare brief AIVR. Rare PACs.
Echo 09/24/2024: EF 64%. No regional wall motion abnormalities. Stage II DD. Mild to moderate aortic stenosis with peak/mean gradient 32/16 mmHg and ASHLEY 1.3 cm�. Mild AI. Mild TR. PAP 50 mmHg, ascending aorta dilation, 4.2 cm.
Exercise nuclear stress test 01/24/2023: 7:16, 8 METS, 86% predicted max heart rate. Predominantly fixed defect in basal inferior, mid inferior, apex and apical inferior segments consistent with infarction with residual ischemia. Predominantly
fixed defects in the basal anterior, basal anterolateral, mid anterior, mid anterolateral and apical lateral segments consistent with infarction with residual ischemia. EF 49%. No change compared to study in 2020. DTS +7
Plan:
HPI: Patient has a history of CABG and PCI, PAF status post ablation February 2024, right bundle branch block, LAFB, NSVT bradycardia sleep apnea chronic kidney disease hypertension and hyperlipidemia. He presents with an episode of 2 hours of
dizziness lightheadedness that occurred while he was walking. He denies syncope. He felt poorly and EMS was called. He did record feeling dizzy in the ambulance. EKG showed sinus bradycardia with first-degree AV block occasional PVCs. He had
minimal troponin elevation at 0.042. He was admitted for observation. He was hypertensive on arrival.
He was seen by Dr. Yee July 2024. He had a recent 5-day [employer] monitor completed 09/19/2024 which showed bradycardia with right bundle branch block and first-degree AVB. Heart rate range 28 to 118 bpm with average 58 bpm. No second-degree AV
block is seen. No atrial fibrillation or flutter. Episodes of junctional rhythm and junctional escape with numerous pauses up to 4.2 seconds seen predominantly during sleep. 1 episode of slow junctional tachycardia. Frequent PVCs with 6 episodes
of NSVT up to 5 beats in length. Rare brief AIVR. Rare PACs.
Continues to have heart rates that drop into the 20s with sinus bradycardia and junctional escape beats while awake. He has complained of some dizziness with this.
He is agreeable to permanent pacemaker given symptomatic bradycardia and the need for AV tracy blocking agents including beta-jessica given his extensive CAD history. He will be monitored with likely placement of permanent pacemaker Tues October 27,
prior to discharge.
Transfer to IVU in anticipation of PPM. Hold Farxiga
Continue medical therapy of non-LA troponin. Recent echo reviewed showed preserved LV function.
Could consider outpt ischemic eval for nonMI trop and NSVT. Cont medical therapy
LDL is in the goal range. Continue Lipitor.
CPAP for HAYLEY
Known CKD and follows with nephrology
HPI 10/24/2024:
Patient is an 84-year-old male with past medical history significant for coronary artery disease status post CABG x 5 and RIDER to LAD stenting in 2004, paroxysmal atrial flutter status post ablation February 2024, right bundle branch block/LAFB,
NSVT, bradycardia, CKD, obstructive sleep apnea, hypertension, hyperlipidemia who presented to emergency department on 10/24/2024 with an episode of dizziness/lightheadedness which occurred while patient was walking. Symptoms were brief in nature.
He denied having associated chest pain or shortness of breath. EMS was called and patient reported feeling spinning sensation in ambulance. Workup in emergency department demonstrated ECG showing sinus bradycardia rate of 57 with 1st degree AV
block and occasional PVCs. Troponin was 0.042 then trended down. CBC was unremarkable. Electrolytes were normal with mild elevation of creatinine at 1.4 which is near baseline. Patient was provided aspirin in emergency department.
Of note he noticed a red spot in his left antecubital area that has a puncture erika in the middle with ecchymosis surrounding it. It appears to be some kind of bite. Developed within last 72 hours. He does not recall seeing a tick or anything
bite him
Progress Note - Corporate Communications Manager
Subjective
Date of Service: October 26, 2024
No acute overnight events. Resting comfortably in bed in the IVU. Not reporting lightheadedness or dizziness at the time of my evaluation.
Objective
Labs:
10/24/24 06:39
10/24/24 06:39
Labs
Hgb 15.8 g/dL (13.0-18.0) 10/24/24 06:39
Hct 44.9 % (39.0-52.0) 10/24/24 06:39
Plt Count 155 10^3/uL (130-400) 10/24/24 06:39
Sodium 144 mmol/L (135-145) 10/24/24 06:39
Potassium 3.9 mmol/L (3.5-5.1) 10/24/24 06:39
BUN 29 mg/dl (9-20) H 10/24/24 06:39
Creatinine 1.3 mg/dL (0.7-1.3) 10/24/24 06:39
Glucose 89 mg/dl (70-99) 10/24/24 06:39
Troponins
10/24/24 10/24/24
01:22 04:27
Troponin I 0.042 H* 0.038 H*
Vital Signs and I&O:
Vital Signs
Temp Pulse Resp BP Pulse Ox
98.3 F 69 20 151/87 97
10/26/24 10:55 10/26/24 09:15 10/26/24 10:55 10/26/24 08:15 10/26/24 10:55
Vital Signs
Temp Pulse Resp BP Pulse Ox
98.3 F 69 20 151/87 97
10/26/24 10:55 10/26/24 09:15 10/26/24 10:55 10/26/24 08:15 10/26/24 10:55
Intake & Output
10/24/24 10/25/24 10/26/24 10/27/24
06:59 06:59 06:59 06:59
Intake Total 1320 / 1320
Output Total 275 / 275
Balance -275 / -275 1320 / 1320
Physical Exam
Physical Exam
Gen: NAD, AAOx3
HEENT: NC/AT, sclera anicteric
Neck: No JVD
CV: Bradycardia, irregular
Lungs: CTAB
Abd: S/ND
Ext: No LE edema
Skin: Warm, dry
Neuro: Non-focal
[2024-10-26] MEDS: LIPITOR 20 MG PO (17:12)
--- NOTE | 2024-10-26 19:04 | PTCARENOTE ---
~2160-8494: handoff report received from nightshift RN. Pt Aox4, [place]. SB (occasionally junctional) 1st degree AVB BBB with frequent PVCs, HR 20s-50s; 60s-80s while walking. Satting >90% on RA. Pt denies pain and dizziness at this time. Pt
independent in room, however education provided to call if he ever feels dizzy. All needs met at this time, call mendoza within reach.
~[id number]: Patient in room. SB/NSR 30s-80s 1st degree AVB BBB with frequent PVCs and occassional junctional beats as well. SBP 130-140ss, RA satting >90%. Patient will be NPO at midnight for PPM tomorrow.
[2024-10-26] MEDS: IMDUR (EXTENDED RELEASE) 30 MG PO (22:08)
[2024-10-26] MEDS: AMBIEN 10 MG PO (22:09)
--- NOTE | 2024-10-26 23:45 | PTCARENOTE ---
Patient received at change of shift resting in the bed. Reports feeling lightheaded at times. Offers no complaints of pain. Sinus rhythm to sinus michaela on telemetry with frequent PVCs and first degree AV block. Oxygen saturation 96% on room air.
Discussed plan of care with patient and family members including nothing to eat or drink after midnight for anticipated pacemaker insertion tomorrow. Call mendoza within reach. Patient instructed to call staff when ambulating if feeling lightheaded or
dizzy. Bed in lowest position, wheels locked. Care ongoing.
[2024-10-27] VITALS (7 sets, daily range): BP systolic 114–158; BP diastolic 66–85; PULSE 60; BMI 28.0
[2024-10-27 04:50] LABS: Hematocrit 46.6 % (39.0-52.0); Hemoglobin 16.3 g/dL (13.0-18.0); Mean Corpuscular Hgb 32.9 pg (27.0-31.0); Mean Corpuscular Volume 94.1 fL (80.0-94.0); Mean Platelet Volume 11.2 fL (7.4-10.4); Platelet Count 167 10^3/uL (130-400); Red Blood Cell Count 4.95 10^6/uL (4.70-6.10); Red Cell Dist. Width 12.6 % (11.5-14.5); White Blood Cell Count 8.9 10^3/uL (4.8-10.8)
[2024-10-27 05:22] LABS: Blood Urea Nitrogen 47 mg/dl (9-20); Calcium 9.5 mg/dl (8.4-10.2); Carbon Dioxide 25 mmol/L (22-30); Chloride 109 mmol/L (98-107); Estimated Creatinine Clearance 37 ml/min; Glucose 92 mg/dl (70-99); Magnesium 2.2 mg/dl (1.6-2.3); Potassium 4.3 mmol/L (3.5-5.1); Sodium 139 mmol/L (135-145); eGFR 49.56
--- NOTE | 2024-10-27 07:40 | W.PN.HOSP.TC ---
Today's Communication/Plan
-
see A/P
for PPM today
Assessment / Plan
Assessment / Plan
HPI: 84-year-old male with past medical history significant for CAD status post CABG, status post stenting, atrial fibrillation on anticoagulation, status post ablation, hypertension; p/w dizziness. He did not have spinning sensation but reported
some lightheadedness. He denied having any chest pain
A/P:
# Dizziness due to symptomatic sinus bradycardia
# First-degree AV block
Sees Dr. JOE Yee in the office
Appreciate cardiology input, plan for permanent pacemaker placement on 10/27/2024
# Paroxysmal atrial flutter
Status post flutter ablation February 2024
continue Eliquis
# Coronary artery disease
Patient with minimally elevated troponin, EKG nonischemic
Continue Imdur, Eliquis, statin
# Obstructive sleep apnea
On nasal CPAP at home, continue CPAP HS here
# CKD stage 3
DVT prophylaxis�Eliquis
Full code
Anticipated Discharge: Within 24 hours
Subjective/Interval History
-
Date of Service: October 27, 2024
Objective Data
-
Labs:
Laboratory Results
10/27/24
04:05
WBC 8.9
Hgb 16.3
Hct 46.6
Plt Count 167
Sodium 139
Potassium 4.3
Chloride 109 H
Carbon Dioxide 25
BUN 47 H
Creatinine 1.4 H
Glucose 92
Calcium 9.5
Vital Signs:
Vital Signs
Temp Pulse Resp BP Pulse Ox
36.3 C 47 18 158/72 98
10/27/24 07:19 10/27/24 04:00 10/27/24 07:19 10/27/24 03:56 10/27/24 07:19
Review of Systems
-
Neuro: Reports Dizzy
Physical Exam
-
General: Well Developed, Well Nourished, No Apparent Distress, Comfortable and Conversant; Negative Respiratory Distress
HEENT: Normocephalic, Atraumatic, Nose Appears Normal and Ears Appear Normal; Negative Oxygen
Respiratory: Clear to Auscultation and Non Labored Respirations; Negative Accessory Resp Muscle Use
Cardiac: Regular Rhythm and S1/S2
GI: Soft, Nontender, Nondistended and Normal Bowel Sounds
Skin: Warm and Dry
Neuro: Awake, Alert, Oriented and AO x 3
Psych: Calm and Intact Judgement/Insight
Data Reviewed
-
Labs: Labs Reviewed by me
--- NOTE | 2024-10-27 08:40 | PTCARENOTE ---
Assumed care of pt from prev nsg shift; Pt AAOx3 w/no c/o CP or SOB. Pt w/HR in the 40's-60's, w/occas pauses & junctional rhythm at rest that drops HR as low as 20's. Pt awaiting PPM insertion this AM. Pt's BP 158/72 this AM. MDs aware of elevated
BPs. Pt is SB w/1st deg AVB, R BBB, freq PVCs, pauses, & occas junctional rhythm at rest. Pt NPO since 0000. Plan of care discussed w/pt & pt w/call mendoza within reach.
Report given to Erick in the EP lab & pt taken to EP lab around 0950 this AM.
--- NOTE | 2024-10-27 09:28 | W.PN.CARDCBS ---
Today's Communication / Plan
-
Continues to have heart rates that drop into the 20s with sinus bradycardia and junctional escape beats while awake. He has complained of some dizziness with this.
He is agreeable to permanent pacemaker given symptomatic bradycardia and the need for AV tracy blocking agents including beta-jessica given his extensive CAD history. He will be monitored with likely placement of permanent pacemaker TuOctober 27
pending schedule.
Continue medical therapy of non-NM troponin. Recent echo reviewed showed preserved LV function.
Could consider outpt ischemic eval for nonMI trop and NSVT. Cont medical therapy
Impression / Plan
-
Family Physician: Wang Mercado
Deputy Fire Chief: Gagan Yee
Impression:
Presents 09/24/2024 with episode of dizziness
Symptomatic bradycardia with junctional escape beats
Right bundle branch block/LAFB
Hypertension
Abnormal troponin, peaked at 0.042
CAD
status post CABG x 5
Status post JOCELINE RIDER to LAD (2004)
Paroxysmal atrial flutter
Status post flutter ablation February 2024
NSVT
CKD, stage III
HAYLEY on CPAP
Hypertension,
Hyperlipidemia
5-day [employer] monitor completed 09/19/2024: Sinus bradycardia with right bundle branch block and first-degree AVB. Heart rate range 28 to 118 bpm with average 58 bpm. No second-degree AV block is seen. No atrial fibrillation or flutter. Episodes of
junctional rhythm and junctional escape with numerous pauses up to 4.2 seconds seen predominantly during sleep. 1 episode of slow junctional tachycardia. Frequent PVCs with 6 episodes of NSVT up to 5 beats in length. Rare brief AIVR. Rare PACs.
Echo 09/24/2024: EF 64%. No regional wall motion abnormalities. Stage II DD. Mild to moderate aortic stenosis with peak/mean gradient 32/16 mmHg and ASHLEY 1.3 cm�. Mild AI. Mild TR. PAP 50 mmHg, ascending aorta dilation, 4.2 cm.
Exercise nuclear stress test 01/24/2023: 7:16, 8 METS, 86% predicted max heart rate. Predominantly fixed defect in basal inferior, mid inferior, apex and apical inferior segments consistent with infarction with residual ischemia. Predominantly
fixed defects in the basal anterior, basal anterolateral, mid anterior, mid anterolateral and apical lateral segments consistent with infarction with residual ischemia. EF 49%. No change compared to study in 2020. DTS +7
Plan:
HPI: Patient has a history of CABG and PCI, PAF status post ablation February 2024, right bundle branch block, LAFB, NSVT bradycardia sleep apnea chronic kidney disease hypertension and hyperlipidemia. He presents with an episode of 2 hours of
dizziness lightheadedness that occurred while he was walking. He denies syncope. He felt poorly and EMS was called. He did record feeling dizzy in the ambulance. EKG showed sinus bradycardia with first-degree AV block occasional PVCs. He had
minimal troponin elevation at 0.042. He was admitted for observation. He was hypertensive on arrival.
He was seen by Dr. Yee July 2024. He had a recent 5-day [employer] monitor completed 09/19/2024 which showed bradycardia with right bundle branch block and first-degree AVB. Heart rate range 28 to 118 bpm with average 58 bpm. No second-degree AV
block is seen. No atrial fibrillation or flutter. Episodes of junctional rhythm and junctional escape with numerous pauses up to 4.2 seconds seen predominantly during sleep. 1 episode of slow junctional tachycardia. Frequent PVCs with 6 episodes
of NSVT up to 5 beats in length. Rare brief AIVR. Rare PACs.
Continues to have heart rates that drop into the 20s with sinus bradycardia and junctional escape beats while awake. He has complained of some dizziness with this.
He is agreeable to permanent pacemaker given symptomatic bradycardia and the need for AV tracy blocking agents including beta-jessica given his extensive CAD history. He will be monitored with likely placement of permanent pacemaker TuOctober 27
pending schedule.
Continue medical therapy of non-NM troponin. Recent echo reviewed showed preserved LV function.
Could consider outpt ischemic eval for nonMI trop and NSVT. Cont medical therapy
LDL is in the goal range. Continue Lipitor.
CPAP for HAYLEY
Known CKD and follows with nephrology
Discussed with son at bedside and answered all questions, they were appreciative.
HPI 10/24/2024:
Patient is an 84-year-old male with past medical history significant for coronary artery disease status post CABG x 5 and RIDER to LAD stenting in 2004, paroxysmal atrial flutter status post ablation February 2024, right bundle branch block/LAFB,
NSVT, bradycardia, CKD, obstructive sleep apnea, hypertension, hyperlipidemia who presented to emergency department on 10/24/2024 with an episode of dizziness/lightheadedness which occurred while patient was walking. Symptoms were brief in nature.
He denied having associated chest pain or shortness of breath. EMS was called and patient reported feeling spinning sensation in ambulance. Workup in emergency department demonstrated ECG showing sinus bradycardia rate of 57 with 1st degree AV
block and occasional PVCs. Troponin was 0.042 then trended down. CBC was unremarkable. Electrolytes were normal with mild elevation of creatinine at 1.4 which is near baseline. Patient was provided aspirin in emergency department.
Of note he noticed a red spot in his left antecubital area that has a puncture erika in the middle with ecchymosis surrounding it. It appears to be some kind of bite. Developed within last 72 hours. He does not recall seeing a tick or anything
bite him
Progress Note - Deputy Fire Chief
Subjective
Date of Service: October 27, 2024
Pt seen and examined. No complaints. No chest pain or shortness of breath.
Objective
Labs:
10/27/24 04:05
10/27/24 04:05
Labs
Hgb 16.3 g/dL (13.0-18.0) 10/27/24 04:05
Hct 46.6 % (39.0-52.0) 10/27/24 04:05
Plt Count 167 10^3/uL (130-400) 10/27/24 04:05
Sodium 139 mmol/L (135-145) 10/27/24 04:05
Potassium 4.3 mmol/L (3.5-5.1) 10/27/24 04:05
BUN 47 mg/dl (9-20) H 10/27/24 04:05
Creatinine 1.4 mg/dL (0.7-1.3) H 10/27/24 04:05
Glucose 92 mg/dl (70-99) 10/27/24 04:05
Vital Signs and I&O:
Vital Signs
Temp Pulse Resp BP Pulse Ox
97.4 F 55 18 151/77 98
10/27/24 07:19 10/27/24 08:30 10/27/24 07:19 10/27/24 07:20 10/27/24 07:19
Vital Signs
Temp Pulse Resp BP Pulse Ox
97.4 F 55 18 151/77 98
10/27/24 07:19 10/27/24 08:30 10/27/24 07:19 10/27/24 07:20 10/27/24 07:19
Intake & Output
10/25/24 10/26/24 10/27/24 10/28/24
06:59 06:59 06:59 06:59
Intake Total 1320 / 1320
Balance 1320 / 1320
Physical Exam
Physical Exam
General: No acute distress, AAOX3
Neck: Negative JVD
Heart: Regular, Negative S3 positive S1/S2, Negative S4, No murmur
Lungs: CTA b/l, negative wheezes/rales/rhonchi
Abd: Positive BS, NT/ND, neg rebound/rigidity/guarding
Ext: Negative cyanosis/clubbing/edema
Neuro: nonfocal
--- NOTE | 2024-10-27 10:04 | CM ---
Reviewed chart. Mr. Scott was transferred to IVU. Met with Mr. Scott to review discharge plans. He states prior to admission he resides with is spouse in a two story home without any steps to enter. He states he has a full flight of steps to
get to bedroom/full bathroom. He states he has a powder room on the first floor. He states prior to admission he was independent with ambulation and and adls. He states he does not have any DME in the home. He states he has a prescription plan
and uses [facility]. Medical work-up in progress. The discharge plan is to return home with his spouse when medically stable.
--- NOTE | 2024-10-27 10:18 | ITS.CL.PACE ---
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
Pacemaker Implant
Procedure Report:
PACEMAKER IMPLANT REPORT
Primary Care Provider: Dr. Wang Mercado
Primary community service patrol officer: Dr. Gagan Yee
Date of Procedure: October 27, 2024
Procedure:
1: Implantation of dual-chamber permanent pacemaker utilizing the left bundle branch for conduction system pacing
Indication/Diagnosis:
1: Non-reversible symptomatic bradycardia due to sinus node dysfunction and documented symptomatic pauses of 4.2 seconds as well as symptomatic bradycardia with heart rates as low as 28 bpm. In addition he has A-V conduction system disease with
right bundle branch block and left anterior fascicular block.
After informed consent was obtained, 'time out' was called and confirmed, the patient was prepped and draped in a sterile fashion. Lidocaine with epi was used for local anesthesia. Central venous access was obtained via subclavian venipuncture. An
incision was made along the left chest and a pre-pectoral pocket was formed. Using a Seldinger technique and peel-away sheaths, the pacing leads were placed under fluoroscopic guidance.
Fluoroscopy was used to determine likely anatomic site for left bundle branch pacing. The Medtronic C315 sheath was used to deliver the Medtronic 3830 Selectsecure pacing lead with the helix exposed just exposed from the sheath tip during continuous
monitoring when pacemapping the septum during gentle clockwise rotation to obtain a paced QRS morphology of a W pattern in lead V1. Once the suspected optimal site was identified, lead deployment was performed with several rapid rotations as paced
QRS morphology was intermittently monitored but a paced QRS complex in lead V1 could not demonstrate the development of an R wave. Multiple attempts were made at several different locations on the interventricular septum however clear conduction
system patient could not be achieved. RV septal pacing was ultimately achieved.
Stable VEgm injury current is present throughout final lead position including at end of case, suggesting there was no perforation through the septum into the LV cavity.
Right atrial lead was placed at the RAA.
Once testing (see below) showed adequate and stable function, the leads were secured using the suture sleeves. The pocket was liberally irrigated with antibiotic solution. The leads were connected to the generator header and the leads and
generator were placed within the pocket. Fluoroscopy confirmed stable lead position. The pocket was closed in the typical fashion.
Fluoroscopy was used to guide lead placement.
IMPLANTS:
Medtronic [id number], SN: [id number], Left Pectoral
RA: Medtronic 5076-45, SN: [id number], RAA
Left Bundle: Medtronic 3830 , SN:[id number], Interventricular septum at LBB
DEVICE TESTING:
Sensing: RA 1.8 mV, RV 4.3 mV
Capture: RA 1.25 V@0.4ms, RV 0.5 V@0.4ms
Ohms: RA 551, RV 912
FINAL PROGRAMMING
Uriel Pacing: Negative MT interval is 510 ms. Therefore MVP mode was not utilized. DDD pacing 60�130.
COMPLICATIONS:
None
CONCLUSIONS:
Successful implant of dual-chamber permanent for symptomatic sick sinus syndrome
No conduction system ventricular pacing was attempted but could not be adequately achieved.
RECOMMENDATIONS:
1. Post-op care (tele, CXR, IV abx)
2. In-Office wound check in 5-7 days
Copy to:
Dr. Wang Mercado
Dr. Gagan Yee
--- NOTE | 2024-10-27 12:10 | PTCARENOTE ---
Rec'd report from Montse in the EP lab; Rec'd pt back in his bed AAOx3 w/ no c/o pain. PPM instertion site w/dressing C/D/I & w/no signs or symptoms of bleeding or hematoma. Pt advised of LUE & bedrest restrictions. Call mendoza within reach & plan of
care ongoing.
[2024-10-27] MEDS: ATACAND 16 MG PO (14:11)
[2024-10-27] MEDS: TYLENOL 1000 MG PO (14:11)
[2024-10-27] MEDS: LASIX 20 MG PO (14:11)
[2024-10-27] MEDS: NORVASC 10 MG PO (14:11)
[2024-10-27] MEDS: FLUSH (NSS) 2 FLUSH IV (19:17)
[2024-10-27] MEDS: LIPITOR 20 MG PO (19:17)
[2024-10-27] MEDS: ANCEF 5 IV (19:17)
[2024-10-27] MEDS: IMDUR (EXTENDED RELEASE) 30 MG PO (22:08)
[2024-10-27] MEDS: AMBIEN 10 MG PO (22:08)
[2024-10-28] MEDS: ANCEF 5 IV (02:26)
[2024-10-28 03:22] VITALS: BP 123/68
[2024-10-28 03:58] LABS: Hematocrit 45.5 % (39.0-52.0); Hemoglobin 15.7 g/dL (13.0-18.0); Mean Corp Hgb Conc. 34.5 g/dL (33.0-37.0); Mean Corpuscular Hgb 32.9 pg (27.0-31.0); Mean Corpuscular Volume 95.4 fL (80.0-94.0); Mean Platelet Volume 10.9 fL (7.4-10.4); Platelet Count 160 10^3/uL (130-400); Red Blood Cell Count 4.77 10^6/uL (4.70-6.10); Red Cell Dist. Width 12.8 % (11.5-14.5)
[2024-10-28 04:26] LABS: Blood Urea Nitrogen 43 mg/dl (9-20); Calcium 9.2 mg/dl (8.4-10.2); Carbon Dioxide 23 mmol/L (22-30); Chloride 108 mmol/L (98-107); Estimated Creatinine Clearance 37 ml/min; Glucose 100 mg/dl (70-99); Magnesium 2.1 mg/dl (1.6-2.3); Potassium 4.3 mmol/L (3.5-5.1); Sodium 140 mmol/L (135-145); eGFR 49.56
--- NOTE | 2024-10-28 05:47 | SUR.OPER ---
pt A Paced on monitor. VSS Denies pain or discomfort. Ambulates with assist x 1. Call mendoza in reach
[2024-10-28 06:54] VITALS: BP 140/80
[2024-10-28 08:17] VITALS: BMI 28.1
--- NOTE | 2024-10-28 08:30 | PTCARENOTE ---
Assumed care of pt from prev nsg shift; Pt AAOx3 w/no c/o CP or SOB. Pt w/HR in the 60's, BP 140/80 this AM. Pt is now A-paced on telemetry monitoring. Pt w/L chest wall new PPM site; dressing C/D/I w/no signs or symptoms of bleeding or hematoma.
This RN removed LUE immobilizer & assisted pt OOB to . Plan of care discussed w/pt & pt w/call mendoza within reach.
--- NOTE | 2024-10-28 08:44 | W.PN.HOSP.TC ---
Addendum entered and electronically signed by Marlena Cao MD 10/28/24 16:07:
Total DC time 40 minutes
Original Note:
Today's Communication/Plan
-
DC when cleared by Card
Assessment / Plan
Assessment / Plan
HPI: 84-year-old male with past medical history significant for CAD status post CABG, status post stenting, atrial fibrillation on anticoagulation, status post ablation, hypertension; p/w dizziness. He did not have spinning sensation but reported
some lightheadedness. He denied having any chest pain
A/P:
# Dizziness due to symptomatic sinus bradycardia
# First-degree AV block
Sees Dr. JOE Yee in the office
s/p permanent pacemaker placement 10/27/2024
Appreciate cardiology input
# Paroxysmal atrial flutter
Status post flutter ablation February 2024
continue Eliquis
# Coronary artery disease
Patient with minimally elevated troponin, EKG nonischemic
Continue Imdur, Eliquis, statin
# Obstructive sleep apnea
On nasal CPAP at home, continue CPAP HS here
# CKD stage 3
DVT prophylaxis�Eliquis
Full code
Anticipated Discharge: Today
Subjective/Interval History
-
Date of Service: October 28, 2024
Objective Data
-
Labs:
Laboratory Results
10/28/24
03:31
WBC 11.0 H
Hgb 15.7
Hct 45.5
Plt Count 160
Sodium 140
Potassium 4.3
Chloride 108 H
Carbon Dioxide 23
BUN 43 H
Creatinine 1.4 H
Glucose 100 H
Calcium 9.2
Vital Signs:
Vital Signs
Temp Pulse Resp BP Pulse Ox
36.6 C 59 20 140/80 96
10/28/24 07:59 10/28/24 07:30 10/28/24 07:59 10/28/24 06:54 10/28/24 07:59
I&O
10/27/24 10/28/24 10/29/24
06:59 06:59 06:59
Intake Total 730 / 730
Output Total 300 / 300
Balance 430 / 430
Review of Systems
-
History Source: Patient
All other systems: Reviewed and negative
Physical Exam
-
General: Well Developed, Well Nourished, No Apparent Distress, Comfortable and Conversant; Negative Respiratory Distress
HEENT: Normocephalic, Atraumatic, Nose Appears Normal and Ears Appear Normal; Negative Oxygen
Respiratory: Clear to Auscultation and Non Labored Respirations; Negative Accessory Resp Muscle Use
Cardiac: Regular Rhythm and S1/S2
GI: Soft, Nontender, Nondistended and Normal Bowel Sounds
Skin: Warm, Dry and Other (PPM incision site intact)
Neuro: Awake, Alert, Oriented and AO x 3
Psych: Calm and Intact Judgement/Insight
Data Reviewed
-
Labs: Labs Reviewed by me
--- NOTE | 2024-10-28 09:09 | CM ---
Reviewed chart. Met with Mr. Scott to review discharge plans. He states he is feeling well and maybe able to home soon. Prior to admission he resides with his spouse in a two story home without any steps to enter. He has a full flight of steps
to get to bedroom/full bathroom. He has a powder room on the first floor. Prior to admission he was independent with ambulation and adls. He does not have any DME in the home. He has a prescription plan and uses [facility]. Medical work-up in
progress. The discharge plan is to return home with his spouse when medically stable.
[2024-10-28] MEDS: TYLENOL 1000 MG PO (09:36)
[2024-10-28] MEDS: ATACAND 16 MG PO (09:36)
[2024-10-28] MEDS: NORVASC 10 MG PO (09:36)
[2024-10-28] MEDS: LASIX 20 MG PO (09:36)
--- NOTE | 2024-10-28 09:46 | W.PN.CARDCBS ---
Today's Communication / Plan
-
Okay for discharge
See medication recommendations below
Impression / Plan
-
Family Physician: Wang Mercado
Mechanism Inspector: Gagan Yee
Impression:
Presents 09/24/2024 with episode of dizziness
Symptomatic bradycardia with junctional escape beats
Right bundle branch block/LAFB
Hypertension
Abnormal troponin, peaked at 0.042
CAD
status post CABG x 5
Status post JOCELINE RIDER to LAD (2004)
Paroxysmal atrial flutter
Status post flutter ablation February 2024
NSVT
CKD, stage III
HAYLEY on CPAP
Hypertension,
Hyperlipidemia
5-day [employer] monitor completed 09/19/2024: Sinus bradycardia with right bundle branch block and first-degree AVB. Heart rate range 28 to 118 bpm with average 58 bpm. No second-degree AV block is seen. No atrial fibrillation or flutter. Episodes of
junctional rhythm and junctional escape with numerous pauses up to 4.2 seconds seen predominantly during sleep. 1 episode of slow junctional tachycardia. Frequent PVCs with 6 episodes of NSVT up to 5 beats in length. Rare brief AIVR. Rare PACs.
Echo 09/24/2024: EF 64%. No regional wall motion abnormalities. Stage II DD. Mild to moderate aortic stenosis with peak/mean gradient 32/16 mmHg and ASHLEY 1.3 cm�. Mild AI. Mild TR. PAP 50 mmHg, ascending aorta dilation, 4.2 cm.
Exercise nuclear stress test 01/24/2023: 7:16, 8 METS, 86% predicted max heart rate. Predominantly fixed defect in basal inferior, mid inferior, apex and apical inferior segments consistent with infarction with residual ischemia. Predominantly
fixed defects in the basal anterior, basal anterolateral, mid anterior, mid anterolateral and apical lateral segments consistent with infarction with residual ischemia. EF 49%. No change compared to study in 2020. DTS +7
Plan:
He looks well at present, dressing is intact. Feels well.
Okay for discharge.
Now that he is paced, we can add a low-dose of a beta-jessica.
Also, his AV delay is very long and he is losing AV synchrony. I think it is okay to shorten AV delay and pace the RV septum even though he does not have a true conduction system lead. We will reprogram pacemaker.
We will arrange for follow-up.
Recommended medications at discharge:
Metoprolol ER 25 mg daily (new)
Amlodipine 10 mg daily
Apixaban 5 mg twice daily
Atorvastatin 20 mg a day
Candesartan 16 mg daily
Furosemide 20 mg daily
Stop isosorbide
Please get basic metabolic panel in 1 week
HPI: Patient has a history of CABG and PCI, PAF status post ablation February 2024, right bundle branch block, LAFB, NSVT bradycardia sleep apnea chronic kidney disease hypertension and hyperlipidemia. He presents with an episode of 2 hours of
dizziness lightheadedness that occurred while he was walking. He denies syncope. He felt poorly and EMS was called. He did record feeling dizzy in the ambulance. EKG showed sinus bradycardia with first-degree AV block occasional PVCs. He had
minimal troponin elevation at 0.042. He was admitted for observation. He was hypertensive on arrival.
He was seen by Dr. Yee July 2024. He had a recent 5-day [employer] monitor completed 09/19/2024 which showed bradycardia with right bundle branch block and first-degree AVB. Heart rate range 28 to 118 bpm with average 58 bpm. No second-degree AV
block is seen. No atrial fibrillation or flutter. Episodes of junctional rhythm and junctional escape with numerous pauses up to 4.2 seconds seen predominantly during sleep. 1 episode of slow junctional tachycardia. Frequent PVCs with 6 episodes
of NSVT up to 5 beats in length. Rare brief AIVR. Rare PACs.
HPI 10/24/2024:
Patient is an 84-year-old male with past medical history significant for coronary artery disease status post CABG x 5 and RIDER to LAD stenting in 2004, paroxysmal atrial flutter status post ablation February 2024, right bundle branch block/LAFB,
NSVT, bradycardia, CKD, obstructive sleep apnea, hypertension, hyperlipidemia who presented to emergency department on 10/24/2024 with an episode of dizziness/lightheadedness which occurred while patient was walking. Symptoms were brief in nature.
He denied having associated chest pain or shortness of breath. EMS was called and patient reported feeling spinning sensation in ambulance. Workup in emergency department demonstrated ECG showing sinus bradycardia rate of 57 with 1st degree AV
block and occasional PVCs. Troponin was 0.042 then trended down. CBC was unremarkable. Electrolytes were normal with mild elevation of creatinine at 1.4 which is near baseline. Patient was provided aspirin in emergency department.
Of note he noticed a red spot in his left antecubital area that has a puncture erika in the middle with ecchymosis surrounding it. It appears to be some kind of bite. Developed within last 72 hours. He does not recall seeing a tick or anything
bite him
Progress Note - Mechanism Inspector
Subjective
Date of Service: October 28, 2024:
Patient with long history of sick sinus syndrome with atrial flutter ablation in February 2020 for, recent monitor showing bradycardia but asymptomatic, now with symptoms of dizziness and status post pacemaker implantation on October 27 with conduction
system lead
PMH: CABG x 5, JOCELINE to RIDER to LAD 2004, nonsustained VT, CKD, sleep apnea, hypertension, hyperlipidemia, right bundle branch block, left anterior fascicular block
Current meds: Reviewed
140/80, pulse 59, respiratory, afebrile, head neck exam unremarkable, lungs are clear, systolic murmur at base, JVD okay, pacemaker dressing intact, abdomen benign, extremities without edema
Hemoglobin 10.7, BUN/creatinine 43 and 1.4
Chest x-ray: Pacemaker in place, CABG, cardiomegaly, no pneumo
ECG: Pending
Telemetry: Atrial pacing with prolonged AV delay occasional PVCs
Objective
Labs:
10/28/24 03:31
10/28/24 03:31
Labs
Hgb 15.7 g/dL (13.0-18.0) 10/28/24 03:31
Hct 45.5 % (39.0-52.0) 10/28/24 03:31
Plt Count 160 10^3/uL (130-400) 10/28/24 03:31
Sodium 140 mmol/L (135-145) 10/28/24 03:31
Potassium 4.3 mmol/L (3.5-5.1) 10/28/24 03:31
BUN 43 mg/dl (9-20) H 10/28/24 03:31
Creatinine 1.4 mg/dL (0.7-1.3) H 10/28/24 03:31
Glucose 100 mg/dl (70-99) H 10/28/24 03:31
Vital Signs and I&O:
Vital Signs
Temp Pulse Resp BP Pulse Ox
36.6 C 59 20 140/80 96
10/28/24 07:59 10/28/24 07:30 10/28/24 07:59 10/28/24 06:54 10/28/24 07:59
Vital Signs
Temp Pulse Resp BP Pulse Ox
36.6 C 59 20 140/80 96
10/28/24 07:59 10/28/24 07:30 10/28/24 07:59 10/28/24 06:54 10/28/24 07:59
Intake & Output
10/26/24 10/27/24 10/28/24 10/29/24
07:59 07:59 07:59 07:59
Intake Total 730 / 730
Output Total 300 / 300
Balance 430 / 430
Physical Exam
Physical Exam
See above
[2024-10-28 10:55] VITALS: BP 110/62
[2024-10-28 14:48] VITALS: BP 108/66
--- NOTE | 2024-10-28 16:03 | DOWNTIME ---
There was a [facility] Client Deputy Clerk Downtime on 10/28/2024 from 1230 to 10/28/2024 at 1550. Downtime documentation of patient's care, including medication administrations, has been reconciled in the electronic record per guidelines. Refer to the
patient's paper chart under the miscellaneous tab to see printed paper medication records and downtime forms.
--- NOTE | 2024-10-28 16:04 | W.DCSUMMARY ---
Discharge Summary
Discharge Data
Date of Admission: 10/27/24
Date of Discharge: 10/28/24
-
Pending Results: No
Hospital Course
Principal Diagnosis:
Dizziness due to symptomatic bradycardia
Chronic Diagnoses:�
Paroxysmal atrial flutter, status post flutter ablation February 2024
Coronary artery disease, on Imdur, Eliquis, statin
Obstructive sleep apnea, on nasal CPAP at home,
CKD stage 3
Consultations:�
Cardiology/EP
Procedures:�
Permanent pacemaker placement 10/27/2024
Clinical course:�
This is a 84-year-old male with past medical history as stated above, who presented with dizziness and lightheadedness.
Problem 1:
Dizziness and lightheadedness due to symptomatic sinus bradycardia.
He underwent permanent pacemaker placement on 10/27/2024 without any complication.
As for the rest of his medical problems, they were stable during his hospital stay.
Discharge Plan
-
Patient Disposition: Home (Routine Discharge)
Discharge Diagnosis/Procedures: Dizziness due to symptomatic sinus bradycardia status post pacemaker implant
Condition: Good
Diet: As tolerated, Low Fat and Low Cholesterol
Activity: As tolerated
Driving Restrictions: No driving for 1 week
Bathing Restrictions: OK to Shower
Stand Alone Forms: [facility] Inst - Implanted Device
Referrals:
[facility] [Provider Group] - 11/05/24 11:20 am
Referral Note: Incision check appointment
Wang Mercado MD [Family Provider] - in less than 1 week
Additional Discharge Medication Instructions: Resume Eliquis on 10/28 evening
Prescriptions:
Continued
atorvastatin 20 MG tablet
20 mg PO QPM
amlodipine 10 MG tablet
10 mg PO DAILY
zolpidem 10 MG tablet
10 mg PO HS
isosorbide mononitrate 30 MG tablet extended release 24 hr
30 mg PO HS
furosemide 40 mg Tablet
20 mg PO DAILY
candesartan 32 mg Tablet
16 mg PO DAILY
Eliquis 5 mg Tablet
5 mg PO BID
Jardiance 10 mg Tablet
10 mg PO DAILY
acetaminophen [Tylenol Extra Strength] 500 mg Tablet
1,000 mg PO DAILY
Discharge Orders:
Discharge Patient (As Directed); Ordered 10/28/24
Ordered By: Marlena Cao
Care Plan Goals
Care Plan Goals:
Problem: Readiness for enhanced knowledge related to diagnosis and treatment plan
Goal: Understand your diagnosis and treatment plan needs, including medications if applicable.
Instructions: Know your diagnosis, underlying causes and treatment plan options, including medications if applicable. Consult with your health care team to learn about your diagnosis and treatment plan, including medications if applicable.
Discharge Date and Time
Print Language: MALAYSIAN
--- NOTE | 2024-10-28 16:30 | PTCARENOTE ---
Pt's IV line & telemetry pack D/C'd. Discharge instructions discussed w/pt & pt's son. 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 Pt's son drove him home.
== END 2024-10-28 16:30 | disposition home or self-care (01) | DRG 243 ==
LOC: IVU 07:27
PROVIDERS: Internal Medicine Cardiovascular Disease; Nurse Practitioner Adult Health; Nurse Practitioner Family; Physician Assistant; ADMITTING PHYSICIAN Internal Medicine; ATTENDING PHYSICIAN Internal Medicine; EMERGENCY PHYSICIAN Student in an Organized Health Care Education/Training Program; FAMILY PHYSICIAN Family Medicine; OTHER PHYSICIAN Nuclear Medicine Nuclear Cardiology
PROC: 5A09357 Assistance with Respiratory Ventilation, Less than 24 Consecutive Hours, Continuous Positive Airway Pressure (ICD-10-PCS; 2024-10-25)
PROC: 02H63JZ Insertion of Pacemaker Lead into Right Atrium, Percutaneous Approach (ICD-10-PCS; 2024-10-27)
PROC: 02HK3JZ Insertion of Pacemaker Lead into Right Ventricle, Percutaneous Approach (ICD-10-PCS; 2024-10-27)
PROC: 0JH606Z Insertion of Pacemaker, Dual Chamber into Chest Subcutaneous Tissue and Fascia, Open Approach (ICD-10-PCS; 2024-10-27)
DX: I49.5 Sick sinus syndrome (principal); I45.2 Bifascicular block; I48.92 Unspecified atrial flutter; I47.20 Ventricular tachycardia, unspecified; I44.0 Atrioventricular block, first degree; G47.33 Obstructive sleep apnea (adult) (pediatric); N18.30 Chronic kidney disease, stage 3 unspecified; I12.9 Hypertensive chronic kidney disease with stage 1 through stage 4 chronic kidney disease, or unspecified chronic kidney disease; Z79.84 Long term (current) use of oral hypoglycemic drugs; Z79.899 Other long term (current) drug therapy; Z79.01 Long term (current) use of anticoagulants; I25.10 Atherosclerotic heart disease of native coronary artery without angina pectoris; Z95.1 Presence of aortocoronary bypass graft; I48.0 Paroxysmal atrial fibrillation; E78.00 Pure hypercholesterolemia, unspecified; Z95.5 Presence of coronary angioplasty implant and graft
CPT/HCPCS: 33208; 71045; 80048; 80053; 80061; 83036; 83735; 84443; 84484; 85025; 85027; 86617; 86618; 93005; 94660; 99285; C1769; C1785; C1887; C1892; C1898; Q9967

== ENCOUNTER → 2024-11-30 11:53 | Outpatient (REF) | payer MEDICARE, SELFPAY ==
[2024-11-30 14:51] LABS: ALT (SGPT) 22 U/L (0-50); AST (SGOT) 25 U/L (17-59); Albumin 4.6 g/dl (3.5-5.0); Alkaline Phosphatase 95 U/L (38-126); Blood Urea Nitrogen 37 mg/dl (9-20); Calcium 9.7 mg/dl (8.4-10.2); Carbon Dioxide 26 mmol/L (22-30); Chloride 109 mmol/L (98-107); Glucose 91 mg/dl (70-99); HDL Cholesterol 41 mg/dl; LDL Cholesterol, Calculated 49 mg/dl; Potassium 4.9 mmol/L (3.5-5.1); Sodium 144 mmol/L (135-145); Total Bilirubin 1.2 mg/dl (0.2-1.3); Total Cholesterol 108 mg/dl (50-199); Total Protein 7.4 g/dl (6.3-8.2); Triglyceride 93 mg/dl (10-149); Very Low Density Lipoprotein 18 mg/dl (0-30); eGFR 45.62
== END ==
LOC: REG 11:53
PROVIDERS: ATTENDING PHYSICIAN Family Medicine
DX: N18.32 Chronic kidney disease, stage 3b (principal); R73.01 Impaired fasting glucose; E78.2 Mixed hyperlipidemia
CPT/HCPCS: 36415; 80053; 80061

== ENCOUNTER → 2025-01-11 08:00 | Outpatient (REF) | payer MEDICARE, SELFPAY ==
[2025-01-11 10:29] LABS: Blood Urea Nitrogen 31 mg/dl (9-20); Calcium 9.3 mg/dl (8.4-10.2); Carbon Dioxide 28 mmol/L (22-30); Chloride 107 mmol/L (98-107); Glucose 92 mg/dl (70-99); Potassium 4.8 mmol/L (3.5-5.1); Sodium 143 mmol/L (135-145); eGFR 45.62
== END ==
LOC: REG 08:00
PROVIDERS: ATTENDING PHYSICIAN Internal Medicine Nephrology; FAMILY PHYSICIAN Family Medicine
DX: N18.31 Chronic kidney disease, stage 3a (principal)
CPT/HCPCS: 36415; 80048; 82570; 84156

== ENCOUNTER → 2025-05-20 11:30 | Outpatient (REF) | payer MEDICARE, SELFPAY ==
[2025-05-20 13:17] LABS: ALT (SGPT) 29 U/L (0-50); AST (SGOT) 30 U/L (17-59); Albumin 4.4 g/dl (3.5-5.0); Alkaline Phosphatase 92 U/L (38-126); Blood Urea Nitrogen 24 mg/dl (9-20); Calcium 9.4 mg/dl (8.4-10.2); Carbon Dioxide 29 mmol/L (22-30); Chloride 104 mmol/L (98-107); Glucose 85 mg/dl (70-99); HDL Cholesterol 45 mg/dl; LDL Cholesterol, Calculated 45 mg/dl; Potassium 4.6 mmol/L (3.5-5.1); Sodium 140 mmol/L (135-145); Total Protein 7.4 g/dl (6.3-8.2); Very Low Density Lipoprotein 17 mg/dl (0-30); eGFR 45.62
== END ==
LOC: REG 11:30
PROVIDERS: ATTENDING PHYSICIAN Internal Medicine Cardiovascular Disease; FAMILY PHYSICIAN Family Medicine; OTHER PHYSICIAN Internal Medicine Nephrology
DX: I10 Essential (primary) hypertension (principal); I50.30 Unspecified diastolic (congestive) heart failure; I25.10 Atherosclerotic heart disease of native coronary artery without angina pectoris; N18.31 Chronic kidney disease, stage 3a
CPT/HCPCS: 36415; 80053; 80061; 82570; 84156